=== PATIENT | female | born 1935 | race Caucasian/White ===

== ENCOUNTER 2018-10-17 08:12 | Inpatient (IN) ==
[2018-10-17 08:23] LABS: Basophils % 0.2 % (0.1-2.0); Eosinophils % 0.1 % (0.1-12.0); Hematocrit 31.9 % (37.0-47.0); Hemoglobin 10.9 g/dL (12.2-16.2); Lymphocytes # 0.7 K/mm3 (0.7-4.5); Lymphocytes % 7.6 % (10-50); Mean Corpuscular HGB Conc 34.2 g/dL (31.8-35.4); Mean Corpuscular Hemoglobin 31.2 pg (27.0-31.2); Mean Platelet Volume 6.7 fl (7.4-10.4); Monocytes # 0.4 K/mm3 (0.1-1.0); Monocytes % 4.7 % (1.7-9.3); Neutrophils # 8.2 K/mm3 (1.8-7.8); Neutrophils % 87.4 % (37.0-80.0); Platelet Count 201 K/mm3 (142-424); Red Blood Count 3.51 M/mm3 (4.20-5.40); Red Cell Distribution Width 13.8 % (11.5-17.5); White Blood Count 9.4 K/mm3 (4.8-10.8)
--- NOTE | 2018-10-17 08:23 | Emergency Department Note ---
ED Disposition Clinical Impression: Fall, Osteopenia, Nausea, Ribs, multiple fractures, Closed fracture of symphysis pubis, Frequent falls, Anticoagulated on Coumadin, Paroxysmal atrial fibrillation, Fracture of sacrum with delayed healing Disposition: Still a Patient Condition on Discharge: Fair Referrals: Cale Baez MD [Primary Care Provider] - - Critical Care Critical Care Time: No Attestation: On , the high probability of a clinically significant, sudden or life threatening deterioration of the following system(s) required my full and direct attention, intervention and personal management. The time I documented below is in addition to time spent performing reported procedures but includes the following listed in this critical care notation. Medical Decision Making - Ru Inquiry Pt receiving controlled substance: No Ru was queried for this patient: No Vital Signs: 10/17/18 07:58 10/17/18 08:19 10/17/18 08:30 Temperature 97.4 F L Temperature Source Temporal Artery Scan Pulse Rate [Right Brachial] 76 70 Respiratory Rate 17 Blood Pressure [Right Arm] 190/94 H 151/69 H Blood Pressure Mean [Right Arm] 126 96 Blood Pressure Source [Right Arm] Automatic Cuff Automatic Cuff Automatic Cuff Blood Pressure Position [Right Arm] Sitting Sitting Sitting 02 Sat by Pulse Oximetry 98 96 Oxygen Delivery Method Room Air 10/17/18 09:50 Temperature Temperature Source Pulse Rate [Right Brachial] 77 Respiratory Rate Blood Pressure [Right Arm] 176/85 H Blood Pressure Mean [Right Arm] 115 Blood Pressure Source [Right Arm] Automatic Cuff Blood Pressure Position [Right Arm] Supine 02 Sat by Pulse Oximetry 96 Oxygen Delivery Method - Lab Data Lab Results 10/17/18 08:00: WBC 9.4, RBC 3.51 L, Hgb 10.9 L, Hct 31.9 L, MCV 91.0, MCH 31.2, MCHC 34.2, RDW 13.8, Plt Count 201, MPV 6.7 L, Neut % (Auto) 87.4 H, Lymph % (Auto) 7.6 L, [place] % (Auto) 4.7, Eos % (Auto) 0.1, Baso % (Auto) 0.2, Neut # (Auto) 8.2 H, Lymph # (Auto) 0.7, [place] # (Auto) 0.4, Eos # (Auto) 0.0, Baso # (Auto) 0.0, Total Counted 100, Neutrophils % (Manual) 89 H, Lymphocytes % (M anual) 5 L, Monocytes % (Manual) 6, Platelet Estimate Normal, RBC Morphology Normal 10/17/18 08:00: PT 15.5 H, INR 1.52 H 10/17/18 08:00: Sodium 130 L, Potassium 2.9 L*, Chloride 92 L, Carbon Dioxide 30, Anion Gap 10.9, BUN 15, Creatinine 0.74, Estimated Creat Clear 40, Estimated GFR 75, Est GFR ( Amer) 90, Glucose 185 H, Calcium 8.6, Total Bilirubin 0.7, AST 16, ALT 17, Alkaline Phosphatase 139 H, Total Protein 6.8, Albumin 3.3 L, Globulin 3.5 H, Albumin/Globulin Ratio 0.9 L, Amylase 51, Lipase 146 10/17/18 08:00: PT 15.4 H, INR 1.51 H, APTT 27.5 10/17/18 08:00: Total Creatine Kinase 47, CK-MB (CK-2) 1.6, CK-MB (CK-2) Rel Index 3.4, Troponin I < 0.02 Result diagrams: 10/17/18 08:00 10/17/18 08:00 Orders (Tests/Meds): ED MEDICATIONS Generic Name Dose Route Start Last Admin Trade Name Suzette PRN Reason Stop Dose Admin Morphine Sulfate 1 mg 10/17/18 08:42 10/17/18 09:51 Morphine 2mg/Ml Syringe IV 11/16/18 08:41 1 mg [id number] PRN Administration Severe Pain Discontinued Medications Generic Name Dose Route Start Last Admin Trade Name Suzette PRN Reason Stop Dose Admin Famotidine 20 mg 10/17/18 08:42 10/17/18 09:51 Pepcid 20mg/2ml Vial IV 10/17/18 08:43 20 mg ONCE ONE Administration Iopamidol 100 ml 10/17/18 09:54 10/17/18 09:56 [id number]; 100ml Vial IV 10/17/18 09:55 100 ml ONCE ONE Administration Protocol Ondansetron HCl 4 mg 10/17/18 08:58 10/17/18 09:00 Zofran 4mg/2ml Vial IV 10/17/18 08:59 4 mg ONCE ONE Administration Potassium Chloride 40 meq 10/17/18 08:42 10/17/18 10:04 Klor-Con 20meq Tablet PO 10/17/18 08:43 20 meq ONCE ONE Administration Sodium Chloride 10 ml 10/17/18 09:54 10/17/18 09:56 Rad-Saline Flush 10ml Syringe IV 10/17/18 09:55 10 ml ONCE ONE Administration Sodium Chloride 50 ml 10/17/18 09:54 10/17/18 09:56 Rad-Sod Chloride 0.9% 250ml IV 10/17/18 09:55 50 ml ONCE ONE Administration ORDERS Category Date Time Status CT chest w con Stat Cat Scan 10/17/18 09:11 Taken XR hip LT 2-3V w/pelvis Stat Exams 10/17/18 08:17 Taken XR hip RT 2-3V w/pelvis Stat Exams 10/17/18 08:06 Taken Urinalysis and Microscopic Stat Lab 10/17/18 08:06 Ordered - Radiology Data #1 Image(s): Chest, Pelvis, Hip Image Reviewed: Yes I reviewed the patient's radiology image Preliminary Findings: Normal/NAD - CT Data CT Scan: Abdomen, Pelvis, Chest Time Received: 10:[address] Reviewed: Yes: I discussed the CT results w/the radiologist, I have viewed the radiologist's interpretation Preliminary Findings: Abnormal Findings Narrative: The patient has left C5-6 and 7 nondisplaced rib fractures with no pneumothorax or hydrothorax with left lower lobe atelectasis. He does have nondisplaced fracture of the superior and inferior pubic rami on the left. - ECG Data Tracing #1 Normal sinus rhythm 71/min baseline artifact no acute findings. ECG initial impression date: 10/17/18 ECG initial impression time: 08:35 Medical Decision Narrative: The patient has left C5-6 and 7 nondisplaced rib fractures with no pneumothorax or hydrothorax with left lower lobe atelectasis. He does have nondisplaced fracture of the superior and inferior pubic rami on the left. I informed the p atient of the above findings by Dr. Snowden. I advised her for admission for rehabilitation and she had questions and finally agreed as she has no help at home and she is recovering for a nondisplaced sacral fracture from June 2018. [address] Baez for admission. Dr. Baez agreed to admit the patient for hypokalemia, Coumadin therapy, pain control fall precautions and rehabilitation Fall HPI - General Chief Complaint: Fall Stated Complaint: fall with left hip pain Time Seen by Provider: 10/17/18 08:15 Mode of Arrival: EMS Limitations: No Limitations Description of Symptoms (Recalled from ER Triage Doc. by RN): pt states she fell while trying to get to her wheelchair around 1230 and managed to make it to the couch, however after being on the couch was unable to get up without severe naus ea. she hit a small table as she went down, and she said it hurt her left posterior ribs. a little while later she noticed left hip pain. history of having had both hips fractured this past year. currently takes coumadin and aspirin daily. states she did alot of physical activity yesterday and may have just gotten weak and stumbled while trying to use her cane - History of Present Illness HPI Narrative: 83 years old white female with history of osteopenia, nondisplaced sacral fracture, bilateral hip fracture in the past on Coumadin anticoagulation ther apy. Today at 12:30 AM while she was ambulating she fell hit her left lower ribs on the table with a result of left lower rib pain contusion and nausea. She ambulated back to the couch and when she tried to get up this morning she was hurting in her ribs and left hip with severe nausea that is when she contacted her niece who in turn called the ambulance and brought her to the ED for evaluation. The pain is sharp in character worse with deep breathing relieved by laying on the right side. She denies shortness of breath hemoptysis vomiting hematemesis coffee-ground emesis melanotic stool or bleeding per rectum. She denies head injury neck or spine pain. She denies loss of consciousness and provided the above history. complaint: fall Onset (ago): hour(s) (more than 7 hours ago.) Fall from: wheelchair Fall witnessed: no Place fall occurred: home Loss of consciousness: none Prolonged down time: no Symptoms prior to fall: none Location of injury: chest, pelvis Severity: moderate Quality: sharp Associated symptoms (after fall): other (nausea. ) - Related Data Home Medications Medication Instructions Recorded Confirmed amiloride 5 mg-hydrochlorothiazide 1 tab PO DAILY 07/26/18 50 mg tablet aspirin 81 mg chewable tablet 81 mg PO DAILY 07/26/18 metoprolol succinate ER 50 mg 50 mg PO DAILY 07/26/18 capsule sprinkle, ext. release 24 hr warfarin 2 mg tablet 2 mg PO QMWF 07/26/18 10/17/18 Allergies Allergy/AdvReac Type Severity Reaction Status Date / Time No Known Allergies Allergy Verified 07/26/18 14:03 [facility] History I have reviewed the patient's past medical history: Yes (I reviewed her records from Dr. Baez. ) Medical History: Reports:: Hypertension Denies:: Internal Pacemaker Other Medical History: Reports: Arthritis, Other Comment: Heart attack 2 years ago. Laterality Cases: Right: Other Other Surgeries: Yes: Cholecystectomy. No: Pacemaker - Social History Educational Level: Completed High School Smoking Status: Never smoker Alcohol Intake: never - Psychiatric History Expresses thoughts of harming self/others: None Suicide Plan Description: No Plan Family Hx:: Hypertension, Cancer ROS Obtained: Yes All systems reviewed & no additional complaints Physical Exam - General General appearance: alert, in no apparent distress - Head Head exam: atraumatic, normocephalic, normal inspection - Eye Eye exam: Present: normal appearance, PERRL, EOMI. Absent: scleral icterus, nystagmus - ENT ENT exam: Present: normal exam, normal oropharynx, mucous membranes moist, TM's normal bilaterally, normal external ear exam - Neck Neck exam: Present: normal inspection, full ROM, trachea midline. Absent: tenderness, meningismus, lymphadenopathy - Chest Chest inspection: Present: normal inspection, symmetric chest wall rise. Absent: tenderness - Respiratory Respiratory exam: Present: normal lung sounds bilaterally. Absent: respiratory distress, wheezes - Cardiovascular Cardiovascular exam: Present: regular rate, normal rhythm, normal heart sounds. Absent: JVD - Abdominal Exam Abdominal exam: Present: soft, normal bowel sounds. Absent: distention, tenderness, guarding, rebound, rigidity - External exam: Present: normal external exam - Extremities Exam Extremities exam: Present: normal inspection, full ROM, normal capillary refill. Absent: tenderness, calf tenderness - Back Exam Back exam: Present: normal inspection. Absent: tenderness, CVA tenderness (R), CVA tenderness (L), paraspinal tenderness, vertebral tenderness - Neurological Exam Neurological exam: Present: alert, oriented X3, CN II-XII intact, motor sensory deficit, reflexes normal - Psychiatric Psychiatric exam: Present: normal affect, normal mood - Skin Skin exam: Present: warm, dry, intact, normal color - Lymphatic Lymphatic Findings: no adenopathy
[2018-10-17 08:28] LABS: INR 1.52 (0.9-1.1); Prothrombin Time 15.5 seconds (9.4-11.8)
[2018-10-17 08:31] LABS: Albumin Level 3.3 gm/dL (3.4-5.0); Albumin/Globulin Ratio 0.9 (1.1-1.8); Anion Gap 10.9 mEq/L (5-15); Bilirubin,Total 0.7 mg/dL (0.2-1.0); Calcium 8.6 mg/dL (8.5-10.1); Globulin 3.5 gm/dl (1.3-3.2); Total Protein,Serum 6.8 gm/dL (6.4-8.2)
[2018-10-17 08:33] LABS: Potassium 2.9 mmoL/L (3.5-5.1)
[2018-10-17 08:40] LABS: Lymphocytes % 5 % (10-50); Monocytes % 6 % (2-9); Neutrophils % 89 % (42-76); Total Cells Counted 100
[2018-10-17 08:41] LABS: RBC Morphology Normal
[2018-10-17 08:56] LABS: Activated Partial Thrombo Time 27.5 seconds (23.6-34.0); INR 1.51 (0.9-1.1); Prothrombin Time 15.4 seconds (9.4-11.8)
[2018-10-17 09:06] LABS: Creatine Kinase 47 U/L (26-192)
--- NOTE | 2018-10-17 11:53 | Pharmacy Consult Notes ---
[facility] Pharmacy VTE Monitoring - Patient Demographics Admission date: 10/17/18 Report Date: 10/17/18 Time: 11:53 Allergies/Adverse Reactions: Patient Allergies No Known Allergies Allergy (Verified 07/26/18 14:03) Height: 1.63 m Weight: 62.851 kg Patient Problems: Current Active Problems Fall (Acute) Osteopenia (Acute) Nausea (Acute) Ribs, multiple fractures (Acute) Closed fracture of symphysis pubis (Acute) Frequent falls (Acute) Anticoagulated on Coumadin (Acute) Paroxysmal atrial fibrillation (Acute) Fracture of sacrum with delayed healing (Acute) - VTE Risk Labs: VTE Related Lab Results Hgb 10.9 g/dL (12.2-16.2) L 10/17/18 08:00 Hct 31.9 % (37.0-47.0) L 10/17/18 08:00 Plt Count 201 K/mm3 (142-424) 10/17/18 08:00 PT 15.4 seconds (9.4-11.8) H 10/17/18 08:00 INR 1.51 (0.9-1.1) H 10/17/18 08:00 APTT 27.5 seconds (23.6-34.0) 10/17/18 08:00 BUN 15 mg/dL (7-18) 10/17/18 08:00 Creatinine 0.74 mg/dL (0.55-1.02) 10/17/18 08:00 Estimated Creat Clear 40 mL/min (50-200) 10/17/18 08:00 VTE Risk Level: Moderate Risk - Prophylaxis VTE Prophylaxis Ordered?: Yes Types of VTE Prophylaxis: Pharmacological Pharmacologic Type: Warfarin - VTE Diagnosis Confirmed Treatment or plan recommended: Continue Current Treatment
[2018-10-17 18:17] LABS: Microscopic, Urine URINE MICROSCOPIC (MICROSCOPIC)
[2018-10-17 18:31] LABS: Appearance,Urine CLEAR (Clear); Bilirubin,Urine Negative (Negative); Blood, Urine Negative (Negative); Color,Urine YELLOW (Yellow); Glucose,Urine (UA) TRACE (Negative); Ketones,Urine Negative (Negative); Leukocyte Esterase,Urine Negative (Negative); Protein,Urine Negative (Negative); Urobilinogen,Urine 0.2 EU/dl (0.2)
[2018-10-17 18:39] LABS: Amorphous Sediment,Urine Trace /lpf; Squamous Epithelial Cell,Urine Occasional #/hpf (0-5)
[2018-10-17 18:40] LABS: WBC,Urine Occasional #/hpf (0-3)
[2018-10-18 06:05] LABS: Basophils % 0.1 % (0.1-2.0); Eosinophils # 0.1 K/mm3 (0.0-0.4); Eosinophils % 0.8 % (0.1-12.0); Hematocrit 27.2 % (37.0-47.0); Lymphocytes # 1.6 K/mm3 (0.7-4.5); Lymphocytes % 25.4 % (10-50); Mean Corpuscular HGB Conc 32.6 g/dL (31.8-35.4); Mean Corpuscular Hemoglobin 29.7 pg (27.0-31.2); Mean Corpuscular Volume 91.3 fl (81-99); Mean Platelet Volume 6.4 fl (7.4-10.4); Monocytes # 0.5 K/mm3 (0.1-1.0); Monocytes % 7.5 % (1.7-9.3); Neutrophils # 4.3 K/mm3 (1.8-7.8); Neutrophils % 66.2 % (37.0-80.0); Platelet Count 175 K/mm3 (142-424); Red Blood Count 2.98 M/mm3 (4.20-5.40); White Blood Count 6.4 K/mm3 (4.8-10.8)
[2018-10-18 06:16] LABS: INR 1.38 (0.9-1.1); Prothrombin Time 14.1 seconds (9.4-11.8)
[2018-10-18 06:18] LABS: Anion Gap 7.8 mEq/L (5-15); Calcium 8.4 mg/dL (8.5-10.1); Potassium 3.8 mmoL/L (3.5-5.1)
[2018-10-18 06:31] LABS: Hemoglobin 8.9 g/dL (12.2-16.2)
--- NOTE | 2018-10-18 07:25 | Progress Note ---
Internal Medicine - PN: Subj *Date: 10/18/18 *Time: 07:47 Interval history: 83 year old female admitted yesterday for pubic fracture, left rib fractures of 5th, 6th, 7th, and 8th, and hypokalemia. She rested comfortably throughout the night with minimal pain, does have complaint of hiccups but not to the point of wanting medicines. Exam Vital signs and Labs for Last 24 Hours: Temp Pulse Resp BP Pulse Ox 98.7 F 84 19 115/55 L 97 10/18/18 04:00 10/18/18 04:00 10/18/18 04:00 10/18/18 04:00 10/18/18 04:00 Laboratory Results - last 24 hr 10/17/18 08:00: WBC 9.4, RBC 3.51 L, Hgb 10.9 L, Hct 31.9 L, MCV 91.0, MCH 31.2, MCHC 34.2, RDW 13.8, Plt Count 201, MPV 6.7 L, Neut % (Auto) 87.4 H, Lymph % (Auto) 7.6 L, [place] % (Auto) 4.7, Eos % (Auto) 0.1, Baso % (Auto) 0.2, Neut # (Auto) 8.2 H, Lymph # (Auto) 0.7, [place] # (Auto) 0.4, Eos # (Auto) 0.0, Baso # (Auto) 0.0, Total Counted 100, Neutrophils % (Manual) 89 H, Lymphocytes % (Manual) 5 L, Monocytes % (Manual) 6, Platelet Estimate Normal, RBC Morphology Normal 10/17/18 08:00: PT 15.5 H, INR 1.52 H 10/17/18 08:00: Sodium 130 L, Potassium 2.9 L*, Chloride 92 L, Carbon Dioxide 30, Anion Gap 10.9, BUN 15, Creatinine 0.74, Estimated Creat Clear 40, Estimated GFR 75, Est GFR ( Amer) 90, Glucose 185 H, Calcium 8.6, Total Bilirubin 0.7, AST 16, ALT 17, Alkaline Phosphatase 139 H, Total Protein 6.8, Albumin 3.3 L, Globulin 3.5 H, Albumin/Globulin Ratio 0.9 L, Amylase 51, Lipase 146 10/17/18 08:00: PT 15.4 H, INR 1.51 H, APTT 27.5 10/17/18 08:00: Total Creatine Kinase 47, CK-MB (CK-2) 1.6, CK-MB (CK-2) Rel Index 3.4, Troponin I < 0.02 10/17/18 18:09: Urine Color Yellow, Urine Appearance Clear, Urine pH 7.0, Ur Specific [place] 1.010, Urine Protein Negative, Urine Glucose (UA) Trace, Urine Ketones Negative, Urine Blood Negative, Urine Nitrate Negative, Urine Bilirubin Negative, Urine Urobilinogen 0.2, Ur Leukocyte Esterase Negative, Urine WBC Occasional, Ur Squamous Epith Cells Occasional, Amorphous Sediment Trace 10/18/18 05:30: WBC 6.4 D, RBC 2.98 L, Hgb 8.9 L D, Hct 27.2 L, MCV 91.3, MCH 29.7, MCHC 32.6, RDW 14.0, Plt Count 175, MPV 6.4 L, Neut % (Auto) 66.2, Lymph % (Auto) 25.4, [place] % (Auto) 7.5, Eos % (Auto) 0.8, Baso % (Auto) 0.1, Neut # (Auto) 4.3, Lymph # (Auto) 1.6, [place] # (Auto) 0.5, Eos # (Auto) 0.1, Baso # (Auto) 0.0 10/18/18 05:30: PT 14.1 H, INR 1.38 H 10/18/18 05:30: Sodium 132 L, Potassium 3.8 D, Chloride 98, Carbon Dioxide 30, Anion Gap 7.8, BUN 9 D, Creatinine 0.66, Estimated Creat Clear 42, Estimated GFR 85, Est GFR ( Amer) 103, Glucose 101 D, Calcium 8.4 L I & O for Last 24 hours: Intake & Output 10/15/18 10/16/18 10/17/18 10/18/18 23:59 23:59 23:59 23:59 Intake Total 733 / 733 626 / 626 Output Total 700 / 700 650 / 650 Balance 33 / 33 -24 / -24 Weight 138 lb 9 oz - Constitutional no acute distress - *Routine HEENT Exam Head: Present: normocephalic Eye: Present: PERRL, normal accommodation ENT: Present: mucous membranes moist - Routine Chest/Breast/Axilla Exam Chest wall: Present: tenderness Comments: left chest tenderness - *Routine Respiratory Exam Present: decreased breath sounds, CTA bilaterally. Absent: accessory muscle use, respiratory distress Comments: decreased left lung base - *Routine Cardiovascular Exam Present: RRR Comments: no LE edema - *Routine Abdominal Exam Present: soft, normoactive bowel sounds. Absent: tenderness - *Routine Neurological Exam Present: alert, oriented X3 - Routine Psychiatric Exam Present: normal affect Assessment and Plan - Assessment and plan all Dx Assessment and Plan for all problems:: Will continue IVFs with potassium, repeat CBC, BMP, and PT/INR tomorrow morning. Physical therapy to eval/treat today. Case management advised of patient and potentially needing SNF. Encouraged patient to use IS, cough and deep breath for pneumonia prevention.
--- NOTE | 2018-10-18 07:29 | History & Physical Report ---
*Admission Date: 10/17/18 *History of present illness: 83 year old female admitted for fractures of the superior and inferior pubic rami left side involving the symphysis pubis, rib fractures of the left 5th, 6th, 7th, and 8th, and hypokalemia. She reports having her cane during this event but still became unsteady leaning to one side and subsequently going down on that (left) side hitting a table, no actual fall to the ground. She lives by herself in a home that now built 50 years ago, if able she'd like to return but understands and is willing to go to [place] [facility]. [facility] History Medical History: Reports:: Cancer (SKIN- NOSE), Hypertension, Myocardial Infarction Denies:: Diabetes Mellitus Type 1, Diabetes Mellitus Type 2, Internal Pacemaker Other Medical History: Reports: Arthritis, Cataracts, Other Laterality Cases: Right: Other Other Surgeries: Yes: Cholecystectomy. No: Pacemaker - *Social History Educational Level: Completed High School Smoking Status: Never smoker Alcohol Intake: never Occupational Status: retired - Psychiatric History Expresses thoughts of harming self/others: None Suicide Plan Description: No Plan *Family Hx:: Hypertension, Cancer Review of Systems - ENT Reports poor balance - *Cardiovascular Denies chest pain, Denies irregular heart rhythm, Denies leg swelling Comments: left rib pain - *Respiratory Reports pain on inspiration, Reports pain with cough, Denies cough, Denies shortness of breath - *Gastrointestinal Denies abdominal pain, Denies coffee ground vomit, Denies black, tarry stools Comments: hiccuping - *Musculoskeletal Reports abnormal walking, Denies numbness - Integumentary/Breasts Denies unusual bruising - *Neurologic Reports frequent falls, Reports lack of coordination Meds Home Medications Medication Instructions Recorded Confirmed Type amiloride 5 mg-hydrochlorothiazide 1 tab PO DAILY 07/26/18 10/17/18 History 50 mg tablet aspirin 81 mg chewable tablet 81 mg PO DAILY 07/26/18 10/17/18 History warfarin 2 mg tablet 2.5 mg PO DAILY 07/26/18 10/17/18 History Metoprolol Succinate [Toprol XL 50 mg PO DAILY 10/17/18 10/17/18 History 50mg Tablet] Allergies Allergy/AdvReac Type Severity Reaction Status Date / Time No Known Allergies Allergy Verified 10/17/18 11:54 Exam Vital signs and Labs for Last 24 Hours: Temp Pulse Resp BP Pulse Ox 98.7 F 84 19 115/55 L 97 10/18/18 04:00 10/18/18 04:00 10/18/18 04:00 10/18/18 04:00 10/18/18 04:00 Laboratory Results - last 24 hr 10/17/18 08:00: WBC 9.4, RBC 3.51 L, Hgb 10.9 L, Hct 31.9 L, MCV 91.0, MCH 31.2, MCHC 34.2, RDW 13.8, Plt Count 201, MPV 6.7 L, Neut % (Auto) 87.4 H, Lymph % (Auto) 7.6 L, [place] % (Auto) 4.7, Eos % (Auto) 0.1, Baso % (Auto) 0.2, Neut # (Auto) 8.2 H, Lymph # (Auto) 0.7, [place] # (Auto) 0.4, Eos # (Auto) 0.0, Baso # (Auto) 0.0, Total Counted 100, Neutrophils % (Manual) 89 H, Lymphocytes % (Manual) 5 L, Monocytes % (Manual) 6, Platelet Estimate Normal, RBC Morphology Normal 10/17/18 08:00: PT 15.5 H, INR 1.52 H 10/17/18 08:00: Sodium 130 L, Potassium 2.9 L*, Chloride 92 L, Carbon Dioxide 30, Anion Gap 10.9, BUN 15, Creatinine 0.74, Estimated Creat Clear 40, Estimated GFR 75, Est GFR ( Amer) 90, Glucose 185 H, Calcium 8.6, Total Bilirubin 0.7, AST 16, ALT 17, Alkaline Phosphatase 139 H, Total Protein 6.8, Albumin 3.3 L, Globulin 3.5 H, Albumin/Globulin Ratio 0.9 L, Amylase 51, Lipase 146 10/17/18 08:00: PT 15.4 H, INR 1.51 H, APTT 27.5 10/17/18 08:00: Total Creatine Kinase 47, CK-MB (CK-2) 1.6, CK-MB (CK-2) Rel Index 3.4, Troponin I < 0.02 10/17/18 18:09: Urine Color Yellow, Urine Appearance Clear, Urine pH 7.0, Ur Specific [place] 1.010, Urine Protein Negative, Urine Glucose (UA) Trace, Urine Ketones Negative, Urine Blood Negative, Urine Nitrate Negative, Urine Bilirubin Negative, Urine Urobilinogen 0.2, Ur Leukocyte Esterase Negative, Urine WBC Occasional, Ur Squamous Epith Cells Occasional, Amorphous Sediment Trace 10/18/18 05:30: WBC 6.4 D, RBC 2.98 L, Hgb 8.9 L D, Hct 27.2 L, MCV 91.3, MCH 29.7, MCHC 32.6, RDW 14.0, Plt Count 175, MPV 6.4 L, Neut % (Auto) 66.2, Lymph % (Auto) 25.4, [place] % (Auto) 7.5, Eos % (Auto) 0.8, Baso % (Auto) 0.1, Neut # (Auto) 4.3, Lymph # (Auto) 1.6, [place] # (Auto) 0.5, Eos # (Auto) 0.1, Baso # (Auto) 0.0 10/18/18 05:30: PT 14.1 H, INR 1.38 H 10/18/18 05:30: Sodium 132 L, Potassium 3.8 D, Chloride 98, Carbon Dioxide 30, Anion Gap 7.8, BUN 9 D, Creatinine 0.66, Estimated Creat Clear 42, Estimated GFR 85, Est GFR ( Amer) 103, Glucose 101 D, Calcium 8.4 L I & O for Last 24 hours: Intake & Output 10/15/18 10/16/18 10/17/18 10/18/18 23:59 23:59 23:59 23:59 Intake Total 733 / 733 626 / 626 Output Total 700 / 700 650 / 650 Balance -24 / -24 Weight 138 lb 9 oz - *Routine HEENT Exam Head: Present: normocephalic, atraumatic Eye: Present: PERRL, normal accommodation ENT: Present: mucous membranes moist - Routine Chest/Breast/Axilla Exam Chest wall: Present: tenderness Comments: left low rib tenderness - *Routine Respiratory Exam Present: CTA bilaterally. Absent: accessory muscle use, respiratory distress Comments: diminished left lower lobes - *Routine Cardiovascular Exam Present: RRR - *Routine Abdominal Exam Present: soft, normoactive bowel sounds. Absent: tenderness - *Routine Exam Comments: external catheter in place to wall suction - *Routine Extremities Exam Present: normal capillary refill. Absent: edema, joint swelling - *Routine Neurological Exam Present: alert, oriented X3, moving all extremities. Absent: altered mental status, facial asymmetry - Routine Psychiatric Exam Present: normal affect, normal thought process Assessment and Plan - Assessment and plan all Dx Assessment and Plan for all problems:: Physical therapy to evaluate and assess mobility today, continue IVF with potassium, will recheck labs tomorrow morning. IS, cough, and deep breathing encouraged each hour throughout the day while awake.
--- NOTE | 2018-10-18 11:16 | Pharmacy Consult Notes ---
[facility] Pharmacy VTE Monitoring - Patient Demographics Admission date: 10/17/18 Report Date: 10/18/18 Time: 11:15 Allergies/Adverse Reactions: Patient Allergies No Known Allergies Allergy (Verified 10/17/18 11:54) Height: 1.63 m Weight: 62.851 kg Patient Problems: Current Active Problems Fall (Acute) Osteopenia (Acute) Nausea (Acute) Ribs, multiple fractures (Acute) Closed fracture of symphysis pubis (Acute) Frequent falls (Acute) Anticoagulated on Coumadin (Acute) Paroxysmal atrial fibrillation (Acute) Fracture of sacrum with delayed healing (Acute) - VTE Risk Labs: VTE Related Lab Results Hgb 8.9 g/dL (12.2-16.2) L D 10/18/18 05:30 Hct 27.2 % (37.0-47.0) L 10/18/18 05:30 Plt Count 175 K/mm3 (142-424) 10/18/18 05:30 PT 14.1 seconds (9.4-11.8) H 10/18/18 05:30 INR 1.38 (0.9-1.1) H 10/18/18 05:30 APTT 27.5 seconds (23.6-34.0) 10/17/18 08:00 BUN 9 mg/dL (7-18) D 10/18/18 05:30 Creatinine 0.66 mg/dL (0.55-1.02) 10/18/18 05:30 Estimated Creat Clear 42 mL/min (50-200) 10/18/18 05:30 VTE Risk Level: Moderate Risk - Prophylaxis VTE Prophylaxis Ordered?: Yes Types of VTE Prophylaxis: TEDS Knee High Location of Applied Device: Bilateral Lower Extremeties
[2018-10-19 06:04] LABS: Basophils % 0.3 % (0.1-2.0); Eosinophils # 0.2 K/mm3 (0.0-0.4); Eosinophils % 2.4 % (0.1-12.0); Hematocrit 28.5 % (37.0-47.0); Lymphocytes # 1.6 K/mm3 (0.7-4.5); Lymphocytes % 24.8 % (10-50); Mean Corpuscular HGB Conc 31.5 g/dL (31.8-35.4); Mean Corpuscular Hemoglobin 29.1 pg (27.0-31.2); Mean Corpuscular Volume 92.2 fl (81-99); Mean Platelet Volume 6.6 fl (7.4-10.4); Monocytes # 0.5 K/mm3 (0.1-1.0); Monocytes % 7.5 % (1.7-9.3); Neutrophils # 4.2 K/mm3 (1.8-7.8); Neutrophils % 65.1 % (37.0-80.0); Platelet Count 179 K/mm3 (142-424); Red Blood Count 3.09 M/mm3 (4.20-5.40); Red Cell Distribution Width 14.1 % (11.5-17.5); White Blood Count 6.5 K/mm3 (4.8-10.8)
[2018-10-19 06:11] LABS: Anion Gap 9.8 mEq/L (5-15); Calcium 8.3 mg/dL (8.5-10.1); INR 1.21 (0.9-1.1); Potassium 3.8 mmoL/L (3.5-5.1); Prothrombin Time 12.4 seconds (9.4-11.8)
--- NOTE | 2018-10-19 07:19 | Discharge Summary ---
General - General Admission date:: 10/17/18 Discharge date: 10/19/18 HPI HPI: 83 year old female admitted for fractures of the superior and inferior pubic rami left side involving the symphysis pubis, rib fractures of the left 5th, 6th, 7th, and 8th, and hypokalemia. She reports having her cane during this event but still became unsteady leaning to one side and subsequently going down on that (left) side hitting a table, no actual fall to the ground. She lives by herself in a home that now built 50 years ago, if able she'd like to return but understands and is willing to go to [facility] facility. Hospital Course Hospital Course: Patient was admitted for pain control and PT evaluation of her acute pelvic fractures. The morning admission her hemoglobin dropped 2 g. Coumadin was held. On the afternoon of the patient was evaluated by physical therapy. She did well ambulating with minimal pain. Patient continued to have pain in the ribs that was exacerbated by movement, deep breathing, sneezing, coughing. Discussion was had with the patient in regards to return to [facility] versus [facility] rehab. The patient preferred to return to home. She was watched for another 24 hours to ensure there was no further drop in hemoglobin. H&H stabilized. On the morning of October 19 she was discharged home. She will follow-up in the office next Thursday Objective Vital signs: Temp Pulse Resp BP Pulse Ox 98.1 F 70 18 124/60 96 10/19/18 04:00 10/19/18 04:00 10/19/18 04:00 10/19/18 04:00 10/19/18 04:00 Results Labs on day of discharge: Labs from last 24 hours 10/19/18 10/19/18 10/19/18 05:28 05:28 05:28 WBC 6.5 RBC 3.09 L Hgb 9.0 L Hct 28.5 L MCV 92.2 MCH 29.1 MCHC 31.5 L RDW 14.1 Plt Count 179 MPV 6.6 L Neut % (Auto) 65.1 Lymph % (Auto) 24.8 [place] % (Auto) 7.5 Eos % (Auto) 2.4 Baso % (Auto) 0.3 Neut # (Auto) 4.2 Lymph # (Auto) 1.6 [place] # (Auto) 0.5 Eos # (Auto) 0.2 Baso # (Auto) 0.0 PT 12.4 H INR 1.21 H Sodium 133 L Potassium 3.8 Chloride 98 Carbon Dioxide 29 Anion Gap 9.8 BUN 10 Creatinine 0.60 Estimated Creat Clear 42 Estimated GFR 95 Est GFR ( Amer) 115 Glucose 96 Calcium 8.3 L DS: Diagnosis - Discharge Diagnosis (1) Pelvic fracture Status: Acute (2) Closed fracture of symphysis pubis Status: Acute (3) Anemia due to blood loss, acute Status: Acute (4) Frequent falls Status: Acute (5) Paroxysmal atrial fibrillation Status: Acute (6) Ribs, multiple fractures Status: Acute Discharge Plan - Patient Discharge Instructions ACTIVITY: Continue current activity DIET: continue same diet - Follow up Plan Follow up with: Mae Bryan APRN [Nurse Practitioner] - 10/25/18 Disposition: Home, Self-Fdc Medications: Home Medications Medication Instructions Recorded Confirmed Type amiloride 5 mg-hydrochlorothiazide 1 tab PO DAILY 07/26/18 10/17/18 History 50 mg tablet aspirin 81 mg chewable tablet 81 mg PO DAILY 07/26/18 10/17/18 History Metoprolol Succinate [Toprol XL 50 mg PO DAILY 10/17/18 10/17/18 History 50mg Tablet] Furosemide [Furosemide 20mg Tab] 20 mg PO DAILY 10/18/18 10/18/18 History Ibandronate Sodium [Boniva] 150 mg PO MONTHLY 10/18/18 10/18/18 History Potassium Chloride [Micro-K 10mEq 10 meq PO DAILY 10/18/18 10/18/18 History cap] Warfarin Sodium 2.5 mg PO DAILY 10/18/18 10/18/18 History Prescriptions/Medication Reconciliation: Continue aspirin 81 mg chewable tablet 81 mg PO DAILY amiloride 5 mg-hydrochlorothiazide 50 mg tablet 1 tab PO DAILY Metoprolol Succinate [Toprol XL 50mg Tablet] 50 mg PO DAILY Potassium Chloride [Micro-K 10mEq cap] 10 meq PO DAILY Ibandronate Sodium [Boniva] 150 mg PO MONTHLY Furosemide [Furosemide 20mg Tab] 20 mg PO DAILY Discontinued Warfarin Sodium 2.5 mg PO DAILY
== END 2018-10-19 10:41 | disposition home or self-care (01) ==
LOC: 2ND 08:12 → ER 08:12 → OBSVTOIN 11:01 → 2ND 11:02
PROVIDERS: ADMIT Family Medicine; ATTEND Family Medicine
CPT/HCPCS: 36415; 71020; 71046; 71101; 71260; 73502; 74177; 80048; 80053; 81001; 82150; 82550; 82553; 83690; 84484; 85007; 85025; 85610; 85730; 90686; 90732; 93005; 96374; 97161; 99283; J2405; Q9967

== ENCOUNTER 2019-03-28 18:04 | Inpatient (IN) ==
--- NOTE | 2019-03-28 18:43 | Emergency Department Note ---
ED Disposition Clinical Impression: Hip fracture, Humeral surgical neck fracture, Anticoagulated on Coumadin Disposition: Admitted As Inpatient Condition on Discharge: Fair Referrals: Cale Baez MD [Primary Care Provider] - Time of Disposition: 20:04 - Critical Care Critical Care Time: No Attestation: On 03/28/19, the high probability of a clinically significant, sudden or life threatening deterioration of the following system(s) required my full and direct attention, intervention and personal management. The time I documented below is in addition to time spent performing reported procedures but includes the following listed in this critical care notation. Medical Decision Making - Medical Records Medical records reviewed: Yes: I reviewed the patient's medical records. - Ru Inquiry Pt receiving controlled substance: No Ru was queried for this patient: No Vital Signs: 03/28/19 18:12 Temperature 97.9 F Temperature Source Oral Pulse Rate [Left Radial] 73 Respiratory Rate 18 Blood Pressure [Right Arm] 145/65 H Blood Pressure Mean [Right Arm] 91 Blood Pressure Source [Right Arm] Automatic Cuff Blood Pressure Position [Right Arm] Sitting 02 Sat by Pulse Oximetry 93 L Oxygen Delivery Method Room Air - Lab Data Lab results reviewed: Yes: I reviewed the patient's lab results. Lab Results 03/28/19 18:40: WBC 15.8 H, RBC 4.08 L, Hgb 12.1 L, Hct 37.0, MCV 90.7, MCH 29.8, MCHC 32.8, RDW 13.3, Plt Count 206, MPV 6.5 L, Neut % (Auto) 92.5 H, Lymph % (Auto) 3.2 L, [place] % (Auto) 3.8, Eos % (Auto) 0.3, Baso % (Auto) 0.1, Neut # (Auto) 14.6 H, Lymph # (Auto) 0.5 L, [place] # (Auto) 0.6, Eos # (Auto) 0.1, Baso # (Auto) 0.0, Total Counted 100, Neutrophils % (Manual) 93 H, Lymphocytes % (Manual) 3 L, Monocytes % (Manual) 4, Platelet Estimate Normal, RBC Morphology Normal 03/28/19 18:40: PT 24.7 H, INR 2.46 H 03/28/19 18:40: Sodium 128 L, Potassium 4.1, Chloride 93 L, Carbon Dioxide 28, Anion Gap 11.1, BUN 16, Creatinine 0.86, Estimated Creat Clear 39, Estimated GFR 63, Est GFR ( Amer) 76, Glucose 164 H, Calcium 9.1, Total Bilirubin 0.7, AST 23, ALT 26, Alkaline Phosphatase 98, Total Protein 7.7, Albumin 3.7, Globulin 4.0 H, Albumin/Globulin Ratio 0.9 L 03/28/19 18:40: CK-MB (CK-2) 0.6 D Result diagrams: 03/28/19 18:40 03/28/19 18:40 Orders (Tests/Meds): ED MEDICATIONS Generic Name Dose Route Start Last Admin Trade Name Freq PRN Reason Stop Dose Admin Sodium Chloride 1,000 mls @ 999 mls/hr 03/28/19 19:45 03/28/19 19:51 Sod Chlor 0.9% 1000ml Bag IV 03/28/19 20:45 999 mls/hr .Q1H1M PEARL Administration Sodium Chloride 500 mls @ 999 mls/hr 03/28/19 19:45 Sod Chlor 0.9% 500ml Bag IV 04/27/19 19:44 .Q31M PEARL Discontinued Medications Generic Name Dose Route Start Last Admin Trade Name Freq PRN Reason Stop Dose Admin Morphine Sulfate 2 mg 03/28/19 19:45 03/28/19 19:51 Morphine 2mg/Ml Syringe IV 03/28/19 19:46 2 mg ONCE ONE Administration Ondansetron HCl 4 mg 03/28/19 19:45 03/28/19 19:51 Zofran 4mg/2ml Vial IV 03/28/19 19:46 4 mg ONCE ONE Administration Phytonadione 5 mg 03/28/19 19:51 Aqua Mephyton 10mg/Ml 1ml Ampule SQ 03/28/19 19:52 ONCE ONE ORDERS Category Date Time Status CT cervical spine wo con Stat Cat Scan 03/28/19 18:[address] head/brain wo con Stat Cat Scan 03/28/19 18:23 Taken Chest XR 2 view (NOT portable) [XR chest 2V] Stat Exams 03/28/19 18:21 Taken Tibia/fibula XR left 2 views [XR tibia fibula LT 2V] Exams 03/28/19 18:39 Taken Stat XR hip LT 2-3V w/pelvis Stat Exams 03/28/19 18:21 Taken XR humerus LT Stat Exams 03/28/19 18:21 Taken XR shoulder LT min 2V Stat Exams 03/28/19 18:21 Taken EKG Request [ECG Request by /Nse] Stat Y 03/28/19 19:44 Ordered - Physician Consults Physician Consulted: Patricio Time: 19:58 Reason -: Admission, Orthopedic Eval/Care Comment/Response: plans surgery for Thursday Additional Consult: Nestor Time: 19:59 Reason -: Admission Comment/Response: medical management. Vitamin K, stop coumadin Fall HPI - General Chief Complaint: Fall Stated Complaint: AO 03/28/19 @ 1230 injury to left side Time Seen by Provider: 03/28/19 18:40 Mode of Arrival: Wheelchair Source of Information: Patient Limitations: No Limitations Description of Symptoms (Recalled from ER Triage Doc. by RN): States today polly und 12:30 she was cleaning the drains outside when she tripped over a stump and stumbled falling on the ground, denies knowing she hit her head but a small raised blue area is noted on right forehead. c/o left shoulder, hip and leg pain. Family states when they picked her up she almost passed out from the pain. - History of Present Illness HPI Narrative: c/o severe left shoulder pain. Fell today, "spent five hours on the ground". I couldn't craw because my shoulder was killing me. - Related Data Home Medications Medication Instructions Recorded Confirmed amiloride 5 mg-hydrochlorothiazide 1 tab PO DAILY 07/26/18 03/28/19 50 mg tablet aspirin 81 mg chewable tablet 81 mg PO DAILY 07/26/18 03/28/19 Metoprolol Succinate [Toprol XL 50 mg PO DAILY 10/17/18 03/28/19 50mg Tablet] Ibandronate Sodium [Boniva] 150 mg PO WEEKLY 10/18/18 03/28/19 Warfarin Sodium [Coumadin 3mg 3.5 mg PO DAILY 03/28/19 03/28/19 tablet] Allergies Allergy/AdvReac Type Severity Reaction Status Date / Time No Known Allergies Allergy Verified 10/17/18 11:54 [facility] History - Hepatitis A Screen Drug use history?: No High risk sexual behaviors?: No History of sexually transmitted infection?: No Currently employed?: No Childcare worker?: No Do you have indoor plumbing?: Yes Do you have electricity?: Yes Attestation statement:: This patient has been screened for Hepatitis A risk factors. I have reviewed the patient's past medical history: Yes Medical History: Reports:: Cancer (SKIN- NOSE), Hypertension, Myocardial Infarction Denies:: Diabetes Mellitus Type 1, Diabetes Mellitus Type 2, Internal Pacemaker Other Medical History: Reports: Arthritis, Cataracts, Other Comment: Heart attack 2 years ago. Laterality Cases: Right: Other Other Surgeries: Yes: Cholecystectomy. No: Pacemaker - Social History Smoking Status: Never smoker Alcohol Intake: never Occupational Status: retired - Psychiatric History Expresses thoughts of harming self/others: None Suicide Plan Description: No Plan Family Hx:: Hypertension, Cancer ROS Obtained: Yes All systems reviewed & no additional complaints - Constitutional Constitutional: Denies chills, Denies fever(s) - ENT Ears, Nose, Mouth, and Throat: Reports system reviewed and no additional complaints, except as docu, Denies difficulty swallowing, Denies ringing in the ears - Cardiovascular Cardiovascular: Denies chest pain, Denies chest pain at rest, Denies diaphoresis, Denies dyspnea - Respiratory Respiratory: Yes system reviewed and no additional complaints, except as docu, No chest congestion, No cough, No dyspnea, No pain on inspiration - Gastrointestinal Gastrointestingal: Denies: abdominal pain - Musculoskeletal Musculoskeletal: Denies joint stiffness, Denies joint swelling, Denies limited range of motion, Reports other (left shoulder predominantly) - Integumentary/Breasts Skin/Breast: Denies rash - Neurologic Neurologic: Denies abnormal speech, Denies behavioral changes, Denies confusion, Denies frequent falls, Denies headache(s), Denies numbness - Hematologic/Lymphatic Henatologic/Lymphatic: Denies easy bleeding, Denies easy bruising Physical Exam - General General appearance: alert, in no apparent distress - Head Head exam: atraumatic, normocephalic, normal inspection, other (other than faint blue bruise on forehead) - Eye Eye exam: Present: normal appearance, PERRL, EOMI - ENT ENT exam: Present: normal exam, normal oropharynx, mucous membranes moist, TM's normal bilaterally, normal external ear exam - Neck Neck exam: Present: normal inspection, full ROM, trachea midline. Absent: meningismus, lymphadenopathy - Chest Chest inspection: Present: normal inspection, symmetric chest wall rise. Absent: tenderness - Respiratory Respiratory exam: Present: normal lung sounds bilaterally. Absent: respiratory distress - Cardiovascular Cardiovascular exam: Present: regular rate, normal rhythm. Absent: JVD - Abdominal Exam Abdominal exam: Present: soft. Absent: distention, tenderness, guarding - Extremities Exam Extremities exam: Present: tenderness, normal capillary refill, joint swelling, other (left shoulder. distal pulses intact.). Absent: full ROM - Expanded Lower Extremity Exam Left Hip/Pelvis exam: Present: full ROM, pelvis stable, other (some pain with e levation and rotation of left hip). Absent: tenderness, deformity, dislocation Lower leg exam: Present: tenderness. Absent: swelling, ecchymosis, deformity - Back Exam Back exam: Present: normal inspection. Absent: tenderness - Neurological Exam Neurological exam: Present: alert, oriented X3 - Psychiatric Psychiatric exam: Present: normal affect, normal mood - Skin Skin exam: Present: warm, dry. Absent: intact
[2019-03-28 18:52] LABS: Basophils % 0.1 % (0.1-2.0); Eosinophils # 0.1 K/mm3 (0.0-0.4); Eosinophils % 0.3 % (0.1-12.0); Hemoglobin 12.1 g/dL (12.2-16.2); Lymphocytes # 0.5 K/mm3 (0.7-4.5); Lymphocytes % 3.2 % (10-50); Mean Corpuscular HGB Conc 32.8 g/dL (31.8-35.4); Mean Corpuscular Hemoglobin 29.8 pg (27.0-31.2); Mean Corpuscular Volume 90.7 fl (81-99); Mean Platelet Volume 6.5 fl (7.4-10.4); Monocytes # 0.6 K/mm3 (0.1-1.0); Monocytes % 3.8 % (1.7-9.3); Neutrophils # 14.6 K/mm3 (1.8-7.8); Neutrophils % 92.5 % (37.0-80.0); Platelet Count 206 K/mm3 (142-424); Red Blood Count 4.08 M/mm3 (4.20-5.40); Red Cell Distribution Width 13.3 % (11.5-17.5); White Blood Count 15.8 K/mm3 (4.8-10.8)
[2019-03-28 18:59] LABS: INR 2.46 (0.9-1.1); Prothrombin Time 24.7 seconds (9.4-11.8)
[2019-03-28 19:04] LABS: Albumin Level 3.7 gm/dL (3.4-5.0); Albumin/Globulin Ratio 0.9 (1.1-1.8); Anion Gap 11.1 mEq/L (5-15); Bilirubin,Total 0.7 mg/dL (0.2-1.0); Calcium 9.1 mg/dL (8.5-10.1); Potassium 4.1 mmoL/L (3.5-5.1); Total Protein,Serum 7.7 gm/dL (6.4-8.2)
[2019-03-28 19:53] LABS: Lymphocytes % 3 % (10-50); Monocytes % 4 % (2-9); Neutrophils % 93 % (42-76); RBC Morphology Normal; Total Cells Counted 100
--- NOTE | 2019-03-29 07:25 | History & Physical Report ---
*Admission Date: 03/28/19 *Chief complaint: Fall *History of present illness: 83-year-old female presented to the emergency department after a fall. Patient was unable to get back up on her own and was ultimately found and brought to the emergency department. In the emergency department she was found to have a left humeral fracture and a left subcapital hip fracture. Patient is been admitted for orthopedic consultation. Patient tells me this morning that she fell by tripping over a powell. She denies loss of consciousness, chest pain, shortness of breath. Patient had prior pelvic fracture approximately 1 year ago. Patient takes warfarin for atrial fibrillation. Her INR was in a therapeutic range yesterday evening in the emergency department and she was given oral vitamin K to reverse this. [facility] History I have reviewed the patient's past medical history: Yes Medical History: Reports:: Atrial Fibrillation, Cancer (SKIN- NOSE), Hypertension, Myocardial Infarction Denies:: Diabetes Mellitus Type 1, Diabetes Mellitus Type 2, Internal Pacemaker *Have you ever received a pneumonia vaccine?: Yes *Have you received a flu vaccine this season?: Yes Other Medical History: Reports: Arthritis, Cataracts, Other Laterality Cases: Right: Other Other Surgeries: Yes: Cholecystectomy. No: Pacemaker - *Social History Educational Level: Completed High School Smoking Status: Never smoker Alcohol Intake: never *Occupational Status:: retired Housing: house Household Members: none *Travel in the last 8 weeks: None - Psychiatric History Expresses thoughts of harming self/others: None Suicide Plan Description: No Plan Family Hx:: Hypertension, Cancer Review of Systems - Review of Systems Review of systems:: pertinent systems reviewed and negative unless documented be low - Constitutional Denies body ache(s), Denies chills - *Cardiovascular Denies chest pain, Denies chest pain at rest - *Respiratory Denies change in phlegm color, Denies chest congestion - *Gastrointestinal Denies change in bowel habits, Denies coffee ground vomit, Denies constipation - *Neurologic Denies abnormal speech, Denies behavioral changes, Denies confusion, Denies frequent falls, Denies headache(s), Denies numbness Meds Home Medications Medication Instructions Recorded Confirmed Type amiloride 5 mg-hydrochlorothiazide 1 tab PO DAILY 07/26/18 03/28/19 History 50 mg tablet aspirin 81 mg chewable tablet 81 mg PO DAILY 07/26/18 03/28/19 History Metoprolol Succinate [Toprol XL 50 mg PO DAILY 10/17/18 03/28/19 History 50mg Tablet] Ibandronate Sodium [Boniva] 150 mg PO WEEKLY 10/18/18 03/28/19 History Warfarin Sodium [Coumadin 3mg 3.5 mg PO DAILY 03/28/19 03/28/19 History tablet] Allergies Allergy/AdvReac Type Severity Reaction Status Date / Time No Known Allergies Allergy Verified 10/17/18 11:54 Exam Vital signs and Labs for Last 24 Hours: Temp Pulse Resp BP Pulse Ox 99.8 F H 85 18 118/58 L 96 03/29/19 04:00 03/29/19 04:00 03/29/19 04:00 03/29/19 04:00 03/29/19 04:00 Laboratory Results - last 24 hr 03/28/19 18:40: WBC 15.8 H, RBC 4.08 L, Hgb 12.1 L, Hct 37.0, MCV 90.7, MCH 29.8, MCHC 32.8, RDW 13.3, Plt Count 206, MPV 6.5 L, Neut % (Auto) 92.5 H, Lymph % (Auto) 3.2 L, [place] % (Auto) 3.8, Eos % (Auto) 0.3, Baso % (Auto) 0.1, Neut # (Auto) 14.6 H, Lymph # (Auto) 0.5 L, [place] # (Auto) 0.6, Eos # (Auto) 0.1, Baso # (Auto) 0.0, Total Counted 100, Neutrophils % (Manual) 93 H, Lymphocytes % (Manual) 3 L, Monocytes % (Manual) 4, Platelet Estimate Normal, RBC Morphology Normal 03/28/19 18:40: PT 24.7 H, INR 2.46 H 03/28/19 18:40: Sodium 128 L, Potassium 4.1, Chloride 93 L, Carbon Dioxide 28, Anion Gap 11.1, BUN 16, Creatinine 0.86, Estimated Creat Clear 39, Estimated GFR 63, Est GFR ( Amer) 76, Glucose 164 H, Calcium 9.1, Total Bilirubin 0.7, AST 23, ALT 26, Alkaline Phosphatase 98, Total Protein 7.7, Albumin 3.7, Globulin 4.0 H, Albumin/Globulin Ratio 0.9 L 03/28/19 18:40: CK-MB (CK-2) 0.6 D 03/28/19 22:20: Urine Color Yellow, Urine Appearance Clear, Urine pH 6.5, Ur Specific [place] 1.015, Urine Protein Negative, Urine Glucose (UA) Negative, Urine Ketones Trace, Urine Blood Trace-l, Urine Nitrate Negative, Urine Bilirubin Negative, Urine Urobilinogen 0.2, Ur Leukocyte Esterase Negative, Urine RBC 5-10, Urine WBC 5-10, Urine Bacteria 1+ I & O for Last 24 hours: Intake & Output 03/26/19 03/27/19 03/28/19 03/29/19 11:59 11:59 11:59 11:59 Intake Total 2042 / 2042 Output Total 725 / 725 Balance 1318 / 1318 Weight 137 lb 6 oz Narrative: Patient is awake and alert this morning. She is in no distress. She is oriented to person, place, time. Oropharynx is moist and clear. Neck is without lymphadenopathy. Heart has a regular rate and rhythm. Lungs are clear to auscultation. Musculoskeletal exam reveals a left arm that is in a sling. She is neurovascularly intact in the left hand and forearm. The left leg is in traction. She is neurovascularly intact in the foot. Assessment and Plan (1) Hip fracture Current visit: Yes Status: Acute Category: Medical Code(s): S72.009A - Fracture of unspecified part of neck of unspecified femur, initial encounter for closed fracture (2) Anticoagulated on Coumadin Current visit: Yes Status: Acute Category: Medical Code(s): Z51.81 - Encounter for therapeutic drug level monitoring; Z79.01 - [facility] (current) use of anticoagulants (3) Humeral surgical neck fracture Current visit: Yes Status: Acute Category: Medical Code(s): S42.213A - Unspecified displaced fracture of surgical neck of unspecified humerus, initial encounter for closed fracture (4) Fall Current visit: No Status: Acute Category: Medical Code(s): W19.XXXA - Unspecified fall, initial encounter (5) Atrial fibrillation with controlled ventricular rate Current visit: Yes Status: Acute Category: Medical Code(s): I48.91 - Unspecified atrial fibrillation - Assessment and plan all Dx Assessment and Plan for all problems:: 1. Orthopedic consultation 2. Home medications but hold warfarin. Monitor INR. Vitamin K as needed to reverse anticoagulation. Surgery may proceed once patient's anticoagulation has been reversed
[2019-03-29 07:36] LABS: Basophils % 0.2 % (0.1-2.0); Eosinophils % 0.2 % (0.1-12.0); Hematocrit 27.9 % (37.0-47.0); Lymphocytes # 1.2 K/mm3 (0.7-4.5); Mean Corpuscular HGB Conc 34.3 g/dL (31.8-35.4); Mean Corpuscular Hemoglobin 30.7 pg (27.0-31.2); Mean Corpuscular Volume 89.6 fl (81-99); Monocytes # 0.5 K/mm3 (0.1-1.0); Monocytes % 5.5 % (1.7-9.3); Neutrophils # 6.9 K/mm3 (1.8-7.8); Neutrophils % 80.2 % (37.0-80.0); Platelet Count 134 K/mm3 (142-424); Red Blood Count 3.11 M/mm3 (4.20-5.40); Red Cell Distribution Width 13.7 % (11.5-17.5); White Blood Count 8.6 K/mm3 (4.8-10.8)
[2019-03-29 07:45] LABS: Anion Gap 10.4 mEq/L (5-15); Potassium 3.4 mmoL/L (3.5-5.1)
[2019-03-29 08:03] LABS: Hemoglobin 9.5 g/dL (12.2-16.2)
[2019-03-29 08:04] LABS: Calcium 7.9 mg/dL (8.5-10.1)
[2019-03-29 08:51] LABS: INR 2.47 (0.9-1.1); Prothrombin Time 24.8 seconds (9.4-11.8)
--- NOTE | 2019-03-29 09:22 | Pharmacy Consult Notes ---
[facility] Pharmacy VTE Monitoring - Patient Demographics Admission date: 03/28/19 Report Date: 03/29/19 Time: 09:22 Allergies/Adverse Reactions: Patient Allergies No Known Allergies Allergy (Verified 10/17/18 11:54) Height: 1.63 m Weight: 62.312 kg Patient Problems: Current Active Problems (Updated 03/29/19 @ 07:26 by Cale Baez MD) Anticoagulated on Coumadin (Acute) Hip fracture (Acute) Humeral surgical neck fracture (Acute) Atrial fibrillation with controlled ventricular rate (Acute) - VTE Risk Labs: VTE Related Lab Results Hgb 9.5 g/dL (12.2-16.2) L D 03/29/19 07:07 Hct 27.9 % (37.0-47.0) L 03/29/19 07:07 Plt Count 134 K/mm3 (142-424) L D 03/29/19 07:07 PT 24.8 seconds (9.4-11.8) H 03/29/19 08:22 INR 2.47 (0.9-1.1) H 03/29/19 08:22 BUN 14 mg/dL (7-18) 03/29/19 07:07 Creatinine 0.64 mg/dL (0.55-1.02) D 03/29/19 07:07 Estimated Creat Clear 41 mL/min (50-200) 03/29/19 07:07 Was VTE Risk Assessment Performed: Yes VTE Score: 5 VTE Risk Level: Low Risk - Prophylaxis VTE Prophylaxis Ordered?: Yes Types of VTE Prophylaxis: TEDS Knee High Location of Applied Device: Bilateral Lower Extremeties - VTE Diagnosis Confirmed Treatment or plan recommended: Continue Current Treatment
--- NOTE | 2019-03-29 13:56 | Consult Report ---
*Admission Date: 03/28/19 Review of Systems - Review of Systems Review of systems:: pertinent systems reviewed and negative unless documented below - *Neurologic Denies abnormal speech, Denies behavioral changes, Denies confusion, Denies frequent falls, Denies headache(s), Denies numbness [facility] History I have reviewed the patient's past medical history: Yes Medical History: Reports:: Atrial Fibrillation, Cancer (SKIN- NOSE), Hypertension, Myocardial Infarction Denies:: Diabetes Mellitus Type 1, Diabetes Mellitus Type 2, Internal Pacemaker *Have you ever received a pneumonia vaccine?: Yes *Have you received a flu vaccine this season?: Yes Other Medical History: Reports: Arthritis, Cataracts, Other Laterality Cases: Right: Other Other Surgeries: Yes: Cholecystectomy. No: Pacemaker - *Social History Educational Level: Completed High School Smoking Status: Never smoker Alcohol Intake: never *Occupational Status:: retired Housing: house Household Members: none *Travel in the last 8 weeks: None - Psychiatric History Expresses thoughts of harming self/others: None Suicide Plan Description: No Plan Family Hx:: Hypertension, Cancer Meds Home Medications Medication Instructions Recorded Confirmed Type amiloride 5 mg-hydrochlorothiazide 1 tab PO DAILY 07/26/18 03/28/19 History 50 mg tablet aspirin 81 mg chewable tablet 81 mg PO DAILY 07/26/18 03/28/19 History Metoprolol Succinate [Toprol XL 50 mg PO DAILY 10/17/18 03/28/19 History 50mg Tablet] Warfarin Sodium [Coumadin 3mg 3.5 mg PO DAILY 03/28/19 03/28/19 History tablet] Ibandronate Sodium 150 mg PO WEEKLY 03/29/19 03/29/19 History Allergies Allergy/AdvReac Type Severity Reaction Status Date / Time No Known Allergies Allergy Verified 10/17/18 11:54 Exam Vital signs and Labs for Last 24 Hours: Temp Pulse Resp BP Pulse Ox 98.6 F 84 18 118/54 L 95 03/29/19 08:00 03/29/19 08:00 03/29/19 08:00 03/29/19 08:00 03/29/19 08:00 Laboratory Results - last 24 hr 03/28/19 18:40: WBC 15.8 H, RBC 4.08 L, Hgb 12.1 L, Hct 37.0, MCV 90.7, MCH 29.8, MCHC 32.8, RDW 13.3, Plt Count 206, MPV 6.5 L, Neut % (Auto) 92.5 H, Lymph % (Auto) 3.2 L, [place] % (Auto) 3.8, Eos % (Auto) 0.3, Baso % (Auto) 0.1, Neut # (Auto) 14.6 H, Lymph # (Auto) 0.5 L, [place] # (Auto) 0.6, Eos # (Auto) 0.1, Baso # (Auto) 0.0, Total Counted 100, Neutrophils % (Manual) 93 H, Lymphocytes % (Manual) 3 L, Monocytes % (Manual) 4, Platelet Estimate Normal, RBC Morphology Normal 03/28/19 18:40: PT 24.7 H, INR 2.46 H 03/28/19 18:40: Sodium 128 L, Potassium 4.1, Chloride 93 L, Carbon Dioxide 28, Anion Gap 11.1, BUN 16, Creatinine 0.86, Estimated Creat Clear 39, Estimated GFR 63, Est GFR ( Amer) 76, Glucose 164 H, Calcium 9.1, Total Bilirubin 0.7, AST 23, ALT 26, Alkaline Phosphatase 98, Total Protein 7.7, Albumin 3.7, Gl obulin 4.0 H, Albumin/Globulin Ratio 0.9 L 03/28/19 18:40: CK-MB (CK-2) 0.6 D 03/28/19 22:20: Urine Color Yellow, Urine Appearance Clear, Urine pH 6.5, Ur Specific [place] 1.015, Urine Protein Negative, Urine Glucose (UA) Negative, Urine Ketones Trace, Urine Blood Trace-l, Urine Nitrate Negative, Urine Bilirubin Negative, Urine Urobilinogen 0.2, Ur Leukocyte Esterase Negative, Urine RBC 5-10, Urine WBC 5-10, Urine Bacteria 1+ 03/29/19 07:07: WBC 8.6 D, RBC 3.11 L, Hgb 9.5 L D, Hct 27.9 L, MCV 89.6, MCH 30.7, MCHC 34.3, RDW 13.7, Plt Count 134 L D, MPV 7.0 L, Neut % (Auto) 80.2 H, Lymph % (Auto) 14.0, [place] % (Auto) 5.5, Eos % (Auto) 0.2, Baso % (Auto) 0.2, Neut # (Auto) 6.9, Lymph # (Auto) 1.2, [place] # (Auto) 0.5, Eos # (Auto) 0.0, Baso # (Auto) 0.0 03/29/19 07:07: Sodium 130 L, Potassium 3.4 L, Chloride 97 L, Carbon Dioxide 26, Anion Gap 10.4, BUN 14, Creatinine 0.64 D, Estimated Creat Clear 41, Estimated GFR 88, Est GFR ( Amer) 107 D, Glucose 115 H D, Calcium 7.9 L D 03/29/19 08:22: PT 24.8 H, INR 2.47 H 03/29/19 12:25: Blood Type O Positive, Antibody Screen Negative I & O for Last 24 hours: Intake & Output 03/27/19 03/28/19 03/29/19 03/30/19 11:59 11:59 11:59 11:59 Intake Total 2403 / 2403 Output Total 725 / 725 Balance 1678 / 1678 Weight 137 lb 6 oz Results - Labs Result Diagrams: 03/30/19 06:50 03/30/19 06:50 Labs: Abnormal lab results 03/28/19 03/28/19 03/28/19 Range/Units 18:40 18:40 18:40 WBC 15.8 H (4.8-10.8) K/mm3 RBC 4.08 L (4.20-5.40) M/mm3 Hgb 12.1 L (12.2-16.2) g/dL Hct (37.0-47.0) % Plt Count (142-424) K/mm3 MPV 6.5 L (7.4-10.4) fl Neut % (Auto) 92.5 H (37.0-80.0) % Lymph % (Auto) 3.2 L (10-50) % Neut # (Auto) 14.6 H (1.8-7.8) K/mm3 Lymph # (Auto) 0.5 L (0.7-4.5) K/mm3 Neutrophils % (Manual) 93 H (42-76) % Lymphocytes % (Manual) 3 L (10-50) % PT 24.7 H (9.4-11.8) seconds INR 2.46 H (0.9-1.1) Sodium 128 L (136-145) mmol/L Potassium (3.5-5.1) mmoL/L Chloride 93 L (98-107) mmol/L Glucose 164 H (74-106) mg/dL Calcium (8.5-10.1) mg/dL Globulin 4.0 H (1.3-3.2) gm/dl Albumin/Globulin Ratio 0.9 L (1.1-1.8) 03/29/19 03/29/19 03/29/19 Range/Units 07:07 07:07 08:22 WBC (4.8-10.8) K/mm3 RBC 3.11 L (4.20-5.40) M/mm3 Hgb 9.5 L D (12.2-16.2) g/dL Hct 27.9 L (37.0-47.0) % Plt Count 134 L D (142-424) K/mm3 MPV 7.0 L (7.4-10.4) fl Neut % (Auto) 80.2 H (37.0-80.0) % Lymph % (Auto) (10-50) % Neut # (Auto) (1.8-7.8) K/mm3 Lymph # (Auto) (0.7-4.5) K/mm3 Neutrophils % (Manual) (42-76) % Lymphocytes % (Manual) (10-50) % PT 24.8 H (9.4-11.8) seconds INR 2.47 H (0.9-1.1) Sodium 130 L (136-145) mmol/L Potassium 3.4 L (3.5-5.1) mmoL/L Chloride 97 L (98-107) mmol/L Glucose 115 H D (74-106) mg/dL Calcium 7.9 L D (8.5-10.1) mg/dL Globulin (1.3-3.2) gm/dl Albumin/Globulin Ratio (1.1-1.8) H & H 03/28/19 03/29/19 Range/Units 18:40 07:07 Hgb 12.1 L 9.5 L D (12.2-16.2) g/dL Hct 37.0 27.9 L (37.0-47.0) % Coagulation 03/28/19 03/29/19 Range/Units 18:40 08:22 INR 2.46 H 2.47 H (0.9-1.1) All other labs normal. Assessment and Plan (1) Hip fracture Current visit: Yes Status: Acute Category: Medical Code(s): S72.009A - Fracture of unspecified part of neck of unspecified femur, initial encounter for closed fracture (2) Anticoagulated on Coumadin Current visit: Yes Status: Acute Category: Medical Code(s): Z51.81 - Encounter for therapeutic drug level monitoring; Z79.01 - [facility] (current) use of anticoagulants (3) Humeral surgical neck fracture Current visit: Yes Status: Acute Category: Medical Code(s): S42.213A - Unspecified displaced fracture of surgical neck of unspecified humerus, initial encounter for closed fracture (4) Fall Current visit: No Status: Acute Category: Medical Code(s): W19.XXXA - Unspecified fall, initial encounter (5) Atrial fibrillation with controlled ventricular rate Current visit: Yes Status: Acute Category: Medical Code(s): I48.91 - Unspecified atrial fibrillation - Assessment and plan all Dx Assessment and Plan for all problems:: I reviewed the clinical and x-ray findings with the patient and her nephew who was with her in the room. I have discussed the diagnosis and management options in detail including both nonsurgical and surgical. I have recommended surgical remediation in the form of a hemiarthroplasty LEFT hip. I explained the procedure, risks and benefits, alternatives and the expected postoperative course. I explained to the patient and her son with drawings of the fracture and the proposed surgical procedure. The complications discussed include but are not limited to infection, injury to nerves and blood vessels, DVT and PE, femur fracture, limb length inequality, dislocation, implant failure, loosening, acetabular wear, osteolysis, periprosthetic femur fracture, heterotopic ossification, abductor weakness and a limp, incomplete relief of pain, incomplete return of function or motion, likely need for further surgery in future including revision, anesthetic/medical complications including heart attack, stroke, transfusion reactions and even . We discussed how any of these events can be devastating. We have discussed nonsurgical alternatives as well. I've explained that the patient is at a significant surgical risk due to her age, medical comorbidities and fragility of the bone. Family and patient seemed to understand and accept these risks. We have discussed nonsurgical alternatives as well. The nonoperative management would essentially consist of prolonged bed rest and traction (skeletal/skin) in bed and pain medication and has exceptionally poor outcome. This could result in nonunion and malunion of the fracture and almost certainly, the patient has a very high risk of decubitus ulcers, UTI, respiratory tract infections, DVT/PE and other complications from being bedridden. I have explained to them that the standard of care for this sort of injuries is surgical throughout the country unless the patient is very ill for surgical management. We also discussed the postoperative course including the rehab and physical therapy required. She lives by herself and may need to go to a short-term rehab place after surgery. All their questions were answered and they verbalized a good understanding. We will obtain a medical clearance from Dr. Baez team. Patient is on long-term warfarin and INR is 2.47 today. She is receiving vitamin K and will recheck INR tomorrow. Plan for surgery tomorrow if INR is less than 1.5. With regards to her left shoulder I will review the CT findings and plan further management accordingly. I have recommended- Type and screen Nothing by mouth after midnight Continue IV fluids DVT prophylaxis as per protocol Analgesia as needed Consent patient for a hemiarthroplasty LEFT hip. Order 2 g of IV Ancef for preoperative prophylaxis to start half an hour before surgery.
[2019-03-30 07:14] LABS: Basophils % 0.1 % (0.1-2.0); Eosinophils # 0.1 K/mm3 (0.0-0.4); Eosinophils % 0.7 % (0.1-12.0); Hematocrit 26.4 % (37.0-47.0); Lymphocytes % 14.3 % (10-50); Mean Corpuscular HGB Conc 34.1 g/dL (31.8-35.4); Mean Corpuscular Hemoglobin 30.5 pg (27.0-31.2); Mean Corpuscular Volume 89.5 fl (81-99); Mean Platelet Volume 6.8 fl (7.4-10.4); Monocytes # 0.5 K/mm3 (0.1-1.0); Monocytes % 7.2 % (1.7-9.3); Neutrophils # 5.6 K/mm3 (1.8-7.8); Neutrophils % 77.6 % (37.0-80.0); Platelet Count 114 K/mm3 (142-424); Red Blood Count 2.95 M/mm3 (4.20-5.40); Red Cell Distribution Width 13.6 % (11.5-17.5); White Blood Count 7.3 K/mm3 (4.8-10.8)
[2019-03-30 07:22] LABS: INR 1.15 (0.9-1.1); Prothrombin Time 11.8 seconds (9.4-11.8)
[2019-03-30 07:25] LABS: Anion Gap 11.2 mEq/L (5-15); Calcium 7.8 mg/dL (8.5-10.1); Potassium 3.2 mmoL/L (3.5-5.1)
--- NOTE | 2019-03-30 07:34 | Progress Note ---
Internal Medicine - PN: Subj *Date: 03/30/19 *Time: 07:32 Interval history: Patient just complains of overall stiffness this morning from laying in traction for the last 24 hours. She is scheduled for surgery this morning. Exam Vital signs and Labs for Last 24 Hours: Temp Pulse Resp BP Pulse Ox 99.3 F 80 18 155/71 H 95 03/30/19 04:00 03/30/19 04:00 03/30/19 04:00 03/30/19 04:00 03/30/19 04:00 Laboratory Results - last 24 hr 03/29/19 07:07: WBC 8.6 D, RBC 3.11 L, Hgb 9.5 L D, Hct 27.9 L, MCV 89.6, MCH 30.7, MCHC 34.3, RDW 13.7, Plt Count 134 L D, MPV 7.0 L, Neut % (Auto) 80.2 H, Lymph % (Auto) 14.0, [place] % (Auto) 5.5, Eos % (Auto) 0.2, Baso % (Auto) 0.2, Neut # (Auto) 6.9, Lymph # (Auto) 1.2, [place] # (Auto) 0.5, Eos # (Auto) 0.0, Baso # (Auto) 0.0 03/29/19 07:07: Sodium 130 L, Potassium 3.4 L, Chloride 97 L, Carbon Dioxide 26, Anion Gap 10.4, BUN 14, Creatinine 0.64 D, Estimated Creat Clear 41, Estimated GFR 88, Est GFR ( Amer) 107 D, Glucose 115 H D, Calcium 7.9 L D 03/29/19 08:22: PT 24.8 H, INR 2.47 H 03/29/19 12:25: Blood Type O Positive, Antibody Screen Negative 03/30/19 06:50: WBC 7.3, RBC 2.95 L, Hgb 9.0 L, Hct 26.4 L, MCV 89.5, MCH 30.5, MCHC 34.1, RDW 13.6, Plt Count 114 L, MPV 6.8 L, Neut % (Auto) 77.6, Lymph % (Auto) 14.3, [place] % (Auto) 7.2, Eos % (Auto) 0.7, Baso % (Auto) 0.1, Neut # (Auto) 5.6, Lymph # (Auto) 1.0, [place] # (Auto) 0.5, Eos # (Auto) 0.1, Baso # (Auto) 0.0 03/30/19 06:50: Sodium 129 L, Potassium 3.2 L, Chloride 94 L, Carbon Dioxide 27, Anion Gap 11.2, BUN 11, Creatinine 0.53 L, Estimated Creat Clear 42, Estimated GFR 110, Est GFR ( Amer) 133 D, Glucose 109 H, Calcium 7.8 L 03/30/19 06:50: PT 11.8, INR 1.15 H I & O for Last 24 hours: Intake & Output 03/27/19 03/28/19 03/29/19 03/30/19 11:59 11:59 11:59 11:59 Intake Total 2403 / 2403 1017 / 1017 Output Total 725 / 725 1100 / 1100 Balance 1678 / 1678 -83 / -83 Weight 137 lb 6 oz 140 lb 5.991 oz Narrative: Patient is awake and alert. Heart has an irregular rate and rhythm. Lungs are clear. Abdomen is soft. Assessment and Plan (1) Hip fracture Current visit: Yes Status: Acute Category: Medical Code(s): S72.009A - Fracture of unspecified part of neck of unspecified femur, initial encounter for closed fracture (2) Anticoagulated on Coumadin Current visit: Yes Status: Acute Category: Medical Code(s): Z51.81 - Encounter for therapeutic drug level monitoring; Z79.01 - [employer] (current) use of anticoagulants (3) Humeral surgical neck fracture Current visit: Yes Status: Acute Category: Medical Code(s): S42.213A - Unspecified displaced fracture of surgical neck of unspecified humerus, initial encounter for closed fracture (4) Fall Current visit: No Status: Acute Category: Medical Code(s): W19.XXXA - Unspecified fall, initial encounter (5) Atrial fibrillation with controlled ventricular rate Current visit: Yes Status: Acute Category: Medical Code(s): I48.91 - Unspecified atrial fibrillation - Assessment and plan all Dx Assessment and Plan for all problems:: Patient coags have improved. Proceed with surgery this morning per Dr. Curry
--- NOTE | 2019-03-30 09:57 | Progress Note ---
Subjective Date: 03/30/19 Time: 08:30 Principal diagnosis: 1. Femoral neck fracture, left 2. Proximal humerus fracture, left PN: Obj Ex Vital signs: Temp Pulse Resp BP Pulse Ox 98.3 F 75 18 141/72 H 93 L 03/30/19 08:00 03/30/19 08:00 03/30/19 08:00 03/30/19 08:00 03/30/19 08:00 Narrative: Laboratory Results - last 24 hr 03/29/19 12:25: Blood Type O Positive, Antibody Screen Negative 03/30/19 06:50: WBC 7.3, RBC 2.95 L, Hgb 9.0 L, Hct 26.4 L, MCV 89.5, MCH 30.5, MCHC 34.1, RDW 13.6, Plt Count 114 L, MPV 6.8 L, Neut % (Auto) 77.6, Lymph % (Auto) 14.3, [place] % (Auto) 7.2, Eos % (Auto) 0.7, Baso % (Auto) 0.1, Neut # (Auto) 5.6, Lymph # (Auto) 1.0, [place] # (Auto) 0.5, Eos # (Auto) 0.1, Baso # (Auto) 0.0 03/30/19 06:50: Sodium 129 L, Potassium 3.2 L, Chloride 94 L, Carbon Dioxide 27, Anion Gap 11.2, BUN 11, Creatinine 0.53 L, Estimated Creat Clear 42, Estimated GFR 110, Est GFR ( Amer) 133 D, Glucose 109 H, Calcium 7.8 L 03/30/19 06:50: PT 11.8, INR 1.15 H Intake & Output 03/27/19 03/28/19 03/29/19 03/30/19 11:59 11:59 11:59 11:59 Intake Total 2403 / 2403 1017 / 1017 Output Total 725 / 725 1100 / 1100 Balance 1678 / 1678 -83 / -83 Weight 137 lb 6 oz 140 lb 5.991 oz - Urinary Catheter Management Allen Cath placed during this visit: yes Insertion date: 03/28/19 Insertion time: 22:20 Progress Note: A&P (1) Hip fracture Status: Acute Assessment and plan: I have reviewed the clinical and x-ray findings with the patient and her niece who is with her in the room. I have discussed the diagnosis and management options in detail including both nonsurgical and surgical. I have recommended surgical remediation in the form of a hemiarthroplasty LEFT hip. I explained the procedure, risks and benefits, alternatives and the expected postoperative course. I explained to the patient and her son with drawings of the fracture and the proposed surgical procedure. The complications discussed include but are not limited to infection, injury to nerves and blood vessels, DVT and PE, femur fracture, limb length inequality, dislocation, implant failure, loosening, acetabular wear, osteolysis, periprosthetic femur fracture, heterotopic ossification, abductor weakness and a limp, incomplete relief of pain, incomplete return of function or motion, likely need for further surgery in future including revision, anesthetic/medical complications including heart attack, stroke, transfusion reactions and even . We discussed how any of these events can be devastating. We have discussed nonsurgical alternatives as well. I've explained that the patient is at a significant surgical risk due to her age, medical comorbidities and fragility of the bone. Family and patient seemed to understand and accept these risks. We have discussed nonsurgical alternatives as well. The nonoperative management would essentially consist of prolonged bed rest and traction (skeletal/skin) in bed and pain medication and has exceptionally poor outcome. This could result in nonunion and malunion of the fracture and almost certainly, the patient has a very high risk of decubitus ulcers, UTI, respiratory tract infections, DVT/PE and other complications from being bedridden. I have explained to them that the standard of care for this sort of injuries is surgical throughout the country unless the patient is very ill for surgical management. We also discussed the postoperative course including the rehab and physical therapy required. She lives by herself and may need to go to a short-term rehab place after surgery. All their questions were answered and they verbalized a good understanding. We will obtain a medical clearance from Dr. Baez team. I have recommended- Crossmatch 2 units of packed cells Continue n.p.o. Continue IV fluids DVT prophylaxis as per protocol Analgesia as needed Consent patient for a hemiarthroplasty LEFT hip. Order 2 g of IV Ancef for preoperative prophylaxis to start half an hour before surgery. Current Visit: Yes (2) Anticoagulated on Coumadin Status: Acute Current Visit: Yes (3) Humeral surgical neck fracture Status: Acute Assessment and plan: I have reviewed the clinical and imaging findings with the patient and her niece. I discussed the diagnosis, natural history and management options in detail including both nonsurgical and surgical. With regards to the fracture management following a detailed discussion about the various surgical and nonsurgical options, she has opted for an open reduction and internal fixation of the fracture. I discussed details of the open reduction and plating of the proximal humerus fracture with or without bone grafting. Following a detailed discussion she wished to proceed with surgery. I discussed the proposed surgical procedure, risks and benefits and alternatives. We've outlined where the incision will be on the skin. Risks of surgery discussed include but are not limited to- infection, bleeding injury to nerves, tendons and blood vessels, bleeding, primary/secondary screw perforation of the humeral head, subacromial impingement, nerve injury/ palsy especially the axillary nerve, avascular necrosis of humeral head, incisional scar (cosmesis), DVT/PE, malunion, nonunion/delayed union, refracture, shoulder/elbow stiffness, persistent pain, CRPS (complex regional pain syndrome- pain, sensory and temperature changes, swelling and stiffness), painful/prominent hardware, loss of fixation/hardware failure, incomplete relief of pain, incomplete return of function, and likely need for further surgery in future and also the risks of anesthesia including heart attack, stroke, and even . We've discussed how there is a small but real possibility of loss of use of the arm, loss of the limb [amputation] or loss of life itself. We've also explained how additional surgery may be required if there are any complications or the fracture fails to heal. We explained the postoperative pain management, recovery and rehabilitation, immobilization required, the likely need for physical therapy, the possibility of stiffness or arthrofibrosis, chronic pain and we've also discussed the option of nonsurgical treatment. We also discussed about possible need for bone grafting including use of synthetic bone graft substitutes. We discussed about possible autologous bone harvesting sites including her iliac crest and middle third of fibula. The patient and her daughter expressed good understanding and have asked appropriate questions. All their questions were answered and they verbalized a good understanding. She desires to proceed with the open reduction internal fixation of her LEFT proximal humerus fracture. Current Visit: Yes (4) Fall Status: Acute Current Visit: No (5) Atrial fibrillation with controlled ventricular rate Status: Acute Current Visit: Yes
--- NOTE | 2019-03-30 19:11 | Progress Note ---
[facility] Anesthesia Checklist - Patient Identification Patient Identification: Arm Band, Verbal (Name & ) - Structural Data Admitted From: Home Planned Operative Procedure/s: L Hip hemiarthroplasty, L shoulder proximal hemiarthroplasty/ORIF Consent for Planned Operative Procedure(s) Verified: Yes Verified Documents: Surgical Consent, History and Physical - NPO Status Verified Time NPO: 00:00 - Chart Verification Results Verified: CBC, BMP, PT, PTT, INR - Additional verifications Anesthesia Reactions: No - Airway Assessment C-Spine Mobility Assessed: Yes (Limited neck ROM) TMJ Mobility Assessed: Yes Dentition: Poor Dentition (Missing teeth) - Neurological Assessment Level of Consciousness: Awake Hx Seizures: No Numbness or tingling in extremities: No - Genitourinary Assessment Urinary Catheter Present: Uretheral (Allen) - Anesthesia Plan Anesthesia Risk discussed: Yes Anesthesia Plan: Verified ASA Class: III Anesthesia Type: General (GETA, SAB, PNB (ISB/SCB)) [facility] History Medical History: Reports:: Atrial Fibrillation, Cancer (SKIN- NOSE), Hypertension, Myocardial Infarction Denies:: Diabetes Mellitus Type 1, Diabetes Mellitus Type 2, Internal Pacemaker *Have you ever received a pneumonia vaccine?: Yes *Have you received a flu vaccine this season?: Yes Other Medical History: Reports: Arthritis, Cataracts, Other Laterality Cases: Right: Other Other Surgeries: Yes: Cholecystectomy. No: Pacemaker - *Social History Educational Level: Completed High School Smoking Status: Never smoker Alcohol Intake: never *Occupational Status:: retired Housing: house Household Members: none *Travel in the last 8 weeks: None - Psychiatric History Expresses thoughts of harming self/others: None Suicide Plan Description: No Plan Family Hx:: Hypertension, Cancer
--- NOTE | 2019-03-30 19:12 | Progress Note ---
[facility] Anesthesia Record Part I Intake, IV Amount: 2,900 Estimated blood loss (mL): 600 Urine output (mL): 600 Blood Products used (#): none Blood Pressure: 146/75 SaO2: 100 Pulse Rate: 86 Respiratory Rate: 14 Temperature: 97.9 F Patient is:: Awake, Stable Stable to PACU at:: 19:00
--- NOTE | 2019-03-30 19:12 | Progress Note ---
[facility] Anesthesia Record Part II Discharge Time: 19:30 Destination: Medical Surgical Department PACU nurse assessment reviewed?: Yes Patient Condition:: Good Anesthesia Complications:: None Swallowing reflex intact?: Yes Cyanosis?: No
[2019-03-30 19:57] LABS: Hemoglobin 7.9 g/dL (12.2-16.2)
[2019-03-30 19:58] LABS: Hematocrit 23.5 % (37.0-47.0)
--- NOTE | 2019-03-30 20:15 | Operative Note ---
Date of procedure: 03/30/19 Pre-op Diagnosis:: 1. Subcapital femoral neck fracture, left hip 2. Proximal humerus fracture, left shoulder Post-op Diagnosis:: Same Procedure performed:: 1. Uncemented bipolar hemiarthroplasty, left hip 2. Open reduction and internal fixation, left proximal humerus Surgeon:: Yon Curry MD Facility Engineer(s):: Sarah Martinez WOOD LAST MAKER:: Zachariah Henley Anesthesia: GETA, regional (Supraclavicular nerve block left), spinal Estimated blood loss (mL): 500 Operative findings:: 1. Displaced sub capital femoral neck fracture of the left hip as noted on the preoperative hip x-rays. The articular cartilage of the acetabulum is well maintained without evidence of any significant arthritis. The proximal femur bone quality is poor with significant osteopenia noted. 2. Comminuted and displaced fracture of the proximal humerus with the varus impaction of the proximal fragment. There was some medial comminution along the calcar as noted on the preoperative imaging. Significant void was noted in the humeral head from impaction after fixing the fracture. This gap was filled with Hydroset synthetic bone graft substitute. The rotator cuff was noted to be intact. Significant osteopenia of the proximal humerus noted. Operative note:: On the day of the procedure the [patient and family were] met on the floor, and a physical examination was performed. The operating side and site were marked and initialed by me. I reviewed the diagnosis, natural history and management options in detail including both the nonsurgical and surgical. Given the nature of the fracture, I have recommended surgery in the form of a hemiarthroplasty of the left hip. I discussed the procedure, risks and benefits, alternatives, potential complications and expected outcomes with [the patient and family]. The complications discussed include but are not limited to infection, injury to nerves and blood vessels, DVT and PE, femur fracture, limb length inequality, dislocation, implant failure, loosening, acetabular wear, osteolysis, periprosthetic femur fracture, heterotopic ossification, abductor weakness and a limp, incomplete relief of pain, incomplete return of function or motion, likely need for further surgery in future including revision, anesthetic/medical complications including heart attack, stroke, transfusion reactions and even . We discussed how any of these events can be devastating. We have discussed nonsurgical alternatives as well. We also discussed the postoperative course including the rehab and physical therapy required. [Patient/family] understood the risks, agreed to proceed with surgery, [signed the consent form] and no guarantees or assurances were given or implied. The patient was brought to the operating room and a [spinal/general] anesthesia was administered by the assembler small products. The patient was then transferred onto the operating table and positioned in the right lateral decubitus position with the left hip facing upwards. All the bony prominences were well-padded. The left lower extremity was then prepped and draped in the usual sterile fashion. The entire operative team used isolation suits and room traffic was controlled. The surgical landmarks and incision was marked over the skin with a marking pen. Ioban sterile drape was used to cover the operative site and isolate the perineum completely from the operative field. Administration of [2 g of prophylactic IV Ancef] was confirmed with the anesthetic team. A preprocedure timeout was performed as per hospital protocol. A posterior approach was used to the hip joint. An electrocautery was used for hemostasis. The skin incision was made centering over the posterior border of the greater trochanter extending posteriorly in a curvilinear fashion across the buttock. The dissection was carried through subcutaneous tissue down to the fascia teo. The fascia teo and gluteus fascia were split and a Charnley retractor was placed. The trochanteric bursa was then removed with blunt dissection. The sciatic nerve was identified and kept out of the harm's way throughout the rest of the procedure. The hip was then internally rotated and the fat over the external rotators was cleared with a sponge. The short external rotator muscles were identified, a tag stitch was placed near their insertion, and they were divided close to the greater trochanter with electrocautery. This exposed the joint capsule which was opened with a T shaped incision and tag stitches were applied to both the leaves of the capsule. Upon entering the joint capsule, a fracture hematoma was noted as well as the displaced sub-capital femoral neck fracture. A corkscrew was then used to remove the femoral head from the acetabulum and passed to the orthophotography technician to be sized on the back table. It measured 46 mm. All bony fragments were then removed from the acetabulum and surrounding soft tissue. The acetabulum was then inspected and found to be clear. The articular cartilage was noted to be well maintained without any significant arthritic changes. Our attention was then turned to the preparation of proximal femur where a cutting guide was used to zuly the neck for the femoral neck cut. An oscillating saw was then used to finish the femoral cut. A box osteotome was then used to remove the bone from the proximal femur. A canal entry reamer was then used to open the femoral canal paying close attention to keep the reamer in a lateral position. Next we performed femoral broaching starting with a small broach, making efforts to lateralize the broach. The broaching was continued sequentially up to size 8 broach. We found this to be a very good fit without any rocking. We then used the calcar reamer to finish the femoral preparation. We then performed a trial reduction using the size 8 broach, -4 neck and 46 mm bipolar head. The hip was taken through range of motion and tested in adduction, internal and external rotation as well as with a shuck and posteriorly directed force on a flexed hip. It was noted that the hip was very stable with these trial components throughout the range of motion. We also noted that the limb lengths were equal with these components. Next, the trial components were removed and the femur and acetabulum were irrigated with pulse lavage and suctioned out. The size 8 Tatum accolade 127 degree femoral stem was introduced and seated to the appropriate level. This gave us a very good fit without any play whatsoever. We then irrigated and dried the Wasserman taper and then placed the definitive 46 mm bipolar femoral head assembly on the stem and tapped into place. The hip was then reduced and again taken through range of motion and noted to be stable. The limb length was also well corrected. The hip joint was then soaked with dilute Betadine solution for 3 minutes, then suctioned out and irrigated with normal saline pulse lavage. [At this point I also injected the capsule and soft tissue with the local anesthetic cocktail (0.5 percent bupivacaine 200 mg +10 mg of morphine +600 g of epinephrine +750 mg of cefuroxime +30 mg of ketorolac diluted in normal saline to make up a total volume of 120 mL).] We confirmed good hemostasis and then proceeded to close the wound. The capsule was closed with [interrupted #1 Vicryl sutures followed by reattachment of the external rotators to the greater trochanter with #1 Vicryl sutures. Next the fascia teo and the gluteus fascia were closed with #1 Vicryl sutures]. The wound was then again irrigated copiously with pulse lavage and suctioned dry. Next the subcutaneous tissues were closed with [2-0 Vicryl sutures. The skin was closed with 4-0 Monocryl subcuticular sutures, Dermabond and Steri-Strips]. Sterile dressings were applied consisting of Silverlon, 4 x 4 and ABDs as well as adhesive tape]. No drains were placed. The patient was then transferred from the operating table onto the bed. The leg lengths were again checked in supine position and noted to be equal. An abduction pillow was placed between the legs. Patient tolerated the procedure well and there were no immediate complications. Swab, needle and instrument counts were correct according to the scrub team at the end of the procedure. Fluoroscopic image in the OR Portable X-rays of the left hip AP and lateral views were obtained in the recovery area and noted to be satisfactory. Postoperatively, continue standard precautions for a posterior hip approach. To mobilize weightbearing as tolerated with the help of a walker by physical therapist and to commence standard physical therapy and precautions for a posterior hip approach. Implant: [employer] Accolade TMGF plus 127 degree neck angle V 40, hip stem- size 8 Tatum UHR universal head bipolar component-46 mm outer diameter/28 mm inner diameter Caleb LFIT V40 femoral head, 28 mm outer diameter, -4 mm offset (Industry assistance representative: [Franky Alfaro] from [employer]) 2. ORIF left proximal humerus: The patient was brought to the operating room, a general anesthesia and interscalene block was administered by the anesthesia team. She was placed in a well-padded beach chair position. The C-arm was brought from the top and the fracture was screened under fluoroscopic guidance in multiple planes. The LEFT u pper extremity was then prepped and draped in the usual sterile fashion. Administration of prophylactic antibiotics was confirmed with the anesthesia team. A preprocedure timeout was performed as per the hospital protocol. An anterolateral acromial approach was planned for the proximal humerus fixation. The bony landmarks of the shoulder were marked with a skin marker on the location of the axillary nerve was marked on the skin at about 6 cm from the acromial edge. Then the skin incision was made starting at the anterolateral edge of the acromion and extending distally just proximal to the deltoid insertion. The dissection was carried through the subcutaneous tissue down to the deltoid muscle. The anterior raphae of the deltoid was identified and the muscle was split in line with the fibers. A wad of muscle tissue was left as a bridge at the level of the axillary nerve to protect the nerve from injury. The muscle was again split below the level of the nerve. This gave us a very good ex posure to the proximal humerus. Then the subdeltoid and subacromial bursa was excised exposing the rotator cuff and proximal humerus. A crescentric shaped full-thickness rotator cuff tear measuring about 1.5 x 1 cm was noted involving the supraspinatus and part of the infraspinatus tendon. Then the biceps tendon was identified in the groove and protected throughout. Stay sutures were placed through the subscapularis, supraspinatus and infraspinatus tendons near their insertion. Then the fracture line was identified and dis-impacted with an elevator. The fracture was essentially a two-part fracture with the tuberosities intact. However there was significant medial comminution along the calcar. The fracture was then reduced and provisionally fixed in position with K wires. Then a 4 holed Caleb proximal humerus locking plate was selected and slid along the lateral border of the proximal humerus under the axillary nerve. The nerve was carefully protected throughout the procedure. The plate was then provisionally fixed to the distal fragment with a cortical screw through the oval hole. Then the humeral head was reduced back onto the plate under fluoroscopic guidance and provisionally fixed with K wires. After confirming satisfactory reduction and provisional fixation under fluoroscopic guidance in multiple planes we proceeded with definitive fixation. Because of severe comminution along the medial aspect anatomic reduction could not be obtained. Using the angle guides multiple locking screws were placed into the humeral head sequentially from proximal to distal. After this the plate was fixed to the distal fragment with cortical screws. This gave us a very stable construct. This was screened under fluoroscopic guidance in multiple planes and we made sure that none of the s crews were penetrating through the humeral head. We then freshened the edges of the rotator cuff tear and repaired the cuff with [id number] sutures using #2 Ethibond sutures. Then the previously placed sutures through the rotator cuff tendons were passed through the suture holes in the plate and tied securely providing a very good hybrid fixation. After this, through the central hole in the plate 15 mL of Hydroset synthetic bone graft was injected into the fracture site. We screened the construct under image intensifier and noted that overall a very satisfactory reduction was obtained and stable fixation was performed. Fluoroscopic images were obtained and stored digitally. The wound was then thoroughly irrigated with normal saline. Hemostasis was obtained with diathermy cautery. The wound was then closed in layers with 2-0 Vicryl, 2-0 Vicryl and 4-0 subcuticular Monocryl sutures and Steri-Strips to the skin. The skin edges were infiltrated with the 10 mL of 0.5 percent Marcaine with epinephrine. Sterile dressings were applied. The arm was then placed in an arm sling with abduction pillow. The patient was then reversed from the anesthetic and transferred onto the bed. She was then transferred to the postoperative recovery area in a stable condition. She tolerated the procedure well and there were no immediate complications. At the end of the procedure swab, needle and instrument counts were correct according to the scrub team. A portable x-ray of the shoulder was obtained in the recovery area showing a satisfactory reduction and fixation of the fracture. Postoperatively patient was admitted for observation, analgesia and two further doses of postoperative antibiotics. EBL (ml): 200 Implant: Caleb AxSOS 3 Titanium Locking Plate and screws- 3 holed plate and multiple locking and nonlocking screws used. 15 mL of Hydrocet synthetic bone substitute used to fill the defect in the humeral head. (Industry assistance representative: Zoran Greenfield from [employer]) Condition: stable Disposition: PACU Specimens:: None Complications:: None
--- NOTE | 2019-03-30 21:11 | Progress Note ---
Subjective Date: 03/30/19 Time: 20:30 Principal diagnosis: 1. Femoral neck fracture, left 2. Proximal humerus fracture, left Interval history: Patient is status post 1. Bipolar hemiarthroplasty LEFT hip; 2. ORIF left proximal humerus, post op day #0. Patient is lying down in the bed. Patient says she has been better but reports no particular complaints. She reports minimal pain over her left hip and no pain in her left shoulder. She is also reporting some nausea but no vomiting. PN: Obj Ex Vital signs: Temp Pulse Resp BP Pulse Ox 97.9 F 79 18 154/76 H 100 03/30/19 19:46 03/30/19 19:46 03/30/19 19:46 03/30/19 19:46 03/30/19 19:46 Narrative: Exam General appearance: Drowsy but easily arousable and engaging in meaningful conversation; no acute distress Cardiovascular: Normal peripheral pulses Respiratory: No respiratory distress noted, speaks in full sentences ABD: soft and non tender Genitourinary: Catheter in situ. On examination of the lower extremities the limb lengths are equal. Thigh and calf are soft and nontender. On examination of the LEFT hip the dressings are clean, dry and intact. There is no soakage of the dressings. Distal pulses are 1+. Distal sensation is intact to light touch throughout. On examination of her LEFT shoulder, the surgical dressings are clean dry and intact. No soakage of dressing is noted. She is in an arm sling. The arm is still numb and paralyzed from preoperative nerve block. Distal pulses 2+. - Urinary Catheter Management Allen Cath placed during this visit: yes Urethral indwelling: Yes Reason for continuing: Surgical procedure Insertion date: 03/28/19 Insertion time: 22:20 Progress Note: A&P (1) Hip fracture Status: Acute Current Visit: Yes (2) Anticoagulated on Coumadin Status: Acute Current Visit: Yes (3) Humeral surgical neck fracture Status: Acute Current Visit: Yes (4) Fall Status: Acute Current Visit: No (5) Atrial fibrillation with controlled ventricular rate Status: Acute Current Visit: Yes Assessment and Plan for All Diagnoses:: I have reviewed the clinical and operative findings and procedure performed with the patient and family. Patient is doing well and reports no immediate postoperative problems. Her postoperative H&H and recommend transfusion of 2 units of packed cells tonight. Patient can be mobilized on the first postoperative day weightbearing as tolerated on the LEFT lower extremity. She should be strictly nonweightbearing on her left upper extremity. This would complicate her rehab. Patient can be restarted on warfarin as per Dr. Baez; until the INR is therapeutic DVT prophylaxis with Lovenox recommended. Continue abduction pillow when in bed and continue standard precautions for the posterior approach hip replacement. Case management consult regarding discharge planning. Continue medical management as per Dr. Baez.
[2019-03-31 04:32] LABS: Basophils % 0.2 % (0.1-2.0); Eosinophils % 0.1 % (0.1-12.0); Hematocrit 33.5 % (37.0-47.0); Lymphocytes # 0.6 K/mm3 (0.7-4.5); Lymphocytes % 4.3 % (10-50); Mean Corpuscular HGB Conc 34.1 g/dL (31.8-35.4); Mean Corpuscular Hemoglobin 30.2 pg (27.0-31.2); Mean Corpuscular Volume 88.5 fl (81-99); Mean Platelet Volume 7.5 fl (7.4-10.4); Monocytes # 0.6 K/mm3 (0.1-1.0); Monocytes % 4.8 % (1.7-9.3); Neutrophils # 11.9 K/mm3 (1.8-7.8); Neutrophils % 90.7 % (37.0-80.0); Platelet Count 112 K/mm3 (142-424); Red Blood Count 3.79 M/mm3 (4.20-5.40); Red Cell Distribution Width 13.9 % (11.5-17.5); White Blood Count 13.2 K/mm3 (4.8-10.8)
[2019-03-31 04:34] LABS: Hemoglobin 11.4 g/dL (12.2-16.2)
[2019-03-31 04:49] LABS: Albumin Level 2.4 gm/dL (3.4-5.0); Albumin/Globulin Ratio 0.8 (1.1-1.8); Anion Gap 12.3 mEq/L (5-15); Bilirubin,Total 0.7 mg/dL (0.2-1.0); Calcium 7.7 mg/dL (8.5-10.1); Globulin 3.2 gm/dl (1.3-3.2); Potassium 3.3 mmoL/L (3.5-5.1); Total Protein,Serum 5.6 gm/dL (6.4-8.2)
[2019-03-31 05:34] LABS: Anisocytosis 1+; Lymphocytes % 4 % (10-50); Monocytes % 2 % (2-9); Neutrophils % 94 % (42-76); Total Cells Counted 100
--- NOTE | 2019-03-31 07:37 | Progress Note ---
Internal Medicine - PN: Subj *Date: 03/31/19 *Time: 07:35 Interval history: Patient underwent left bipolar hemiarthroplasty of the hip and ORIF of the left shoulders humeral neck fracture yesterday. Postoperatively she received 2 units of packed red blood cells. She reports mild pain in the left shoulder and no pain in the left hip. Exam Vital signs and Labs for Last 24 Hours: Temp Pulse Resp BP Pulse Ox 98.0 F 83 16 143/75 H 95 03/31/19 04:00 03/31/19 04:00 03/31/19 04:00 03/31/19 04:00 03/31/19 04:00 Laboratory Results - last 24 hr 03/29/19 12:25: Blood Type O Positive, Antibody Screen Negative, Crossmatch (AHG) See Detail 03/30/19 19:45: Blood Type Confirm O Positive 03/30/19 19:45: Hgb 7.9 L*, Hct 23.5 L* 03/31/19 04:10: WBC 13.2 H D, RBC 3.79 L D, Hgb 11.4 L D, Hct 33.5 L, MCV 88.5, MCH 30.2, MCHC 34.1, RDW 13.9, Plt Count 112 L, MPV 7.5, Neut % (Auto) 90.7 H, Lymph % (Auto) 4.3 L, Alfalfa % (Auto) 4.8, Eos % (Auto) 0.1, Baso % (Auto) 0.2, Neut # (Auto) 11.9 H, Lymph # (Auto) 0.6 L, Alfalfa # (Auto) 0.6, Eos # (Auto) 0.0, Baso # (Auto) 0.0, Total Counted 100, Neutrophils % (Manual) 94 H, Lymphocytes % (Manual) 4 L, Monocytes % (Manual) 2, Platelet Estimate Normal, RBC Morphology Not Reportable, Anisocytosis 1+ 03/31/19 04:10: Sodium 133 L, Potassium 3.3 L, Chloride 98, Carbon Dioxide 26, Anion Gap 12.3, BUN 14 D, Creatinine 0.71 D, Estimated Creat Clear 42, Estimated GFR 78, Est GFR ( Amer) 95 D, Glucose 179 H D, Calcium 7.7 L, Total Bilirubin 0.7, AST 25, ALT 18 D, Alkaline Phosphatase 67, Total Protein 5.6 L D, Albumin 2.4 L, Globulin 3.2, Albumin/Globulin Ratio 0.8 L I & O for Last 24 hours: Intake & Output 03/28/19 03/29/19 03/30/19 03/31/19 11:59 11:59 11:59 11:59 Intake Total 2403 / 2403 1017 / 1017 3362 / 3362 Output Total 725 / 725 1100 / 1100 1350 / 1350 Balance 1678 / 1678 -83 / -83 2011 Weight 137 lb 6 oz 140 lb 5.991 oz 140 lb 5.999 oz Narrative: Patient is awake and alert this morning. Lungs remain clear to auscultation. Heart has a regular rate and rhythm this morning. Surgical wounds were not inspected by me Assessment and Plan (1) Hip fracture Current visit: Yes Status: Acute Category: Medical Code(s): S72.009A - Fracture of unspecified part of neck of unspecified femur, initial encounter for closed fracture (2) Anticoagulated on Coumadin Current visit: Yes Status: Acute Category: Medical Code(s): Z51.81 - Encounter for therapeutic drug level monitoring; Z79.01 - half-way (current) use of anticoagulants (3) Humeral surgical neck fracture Current visit: Yes Status: Acute Category: Medical Code(s): S42.213A - Unspecified displaced fracture of surgical neck of unspecified humerus, initial encounter for closed fracture (4) Fall Current visit: No Status: Acute Category: Medical Code(s): W19.XXXA - Unspecified fall, initial encounter (5) Atrial fibrillation with controlled ventricular rate Current visit: Yes Status: Acute Category: Medical Code(s): I48.91 - Unspecified atrial fibrillation (6) Anemia of chronic disease Current visit: Yes Status: Acute Category: Medical Code(s): D63.8 - Anemia in other chronic diseases classified elsewhere (7) Anemia due to blood loss, acute Current visit: No Status: Acute Category: Medical Code(s): D62 - Acute posthemorrhagic anemia - Assessment and plan all Dx Assessment and Plan for all problems:: 1. Restart warfarin 2. PT evaluation today 3. Care management has begun working on finding a bed at a shelter facility
--- NOTE | 2019-03-31 14:00 | Progress Note ---
Subjective Date: 03/31/19 Time: 13:00 Principal diagnosis: 1. Femoral neck fracture, left 2. Proximal humerus fracture, left Interval history: Patient is status post 1. Bipolar hemiarthroplasty LEFT hip; 2. ORIF left proximal humerus, post op day #1. Patient is lying down in the bed. Patient says she has been feeling very and reports no particular complaints. She reports minimal pain over her left hip and left shoulder. Also reports some residual numbness in her left hand. She is eating drinking well and reports no nausea or vomiting today. She started mobilizing with the help of physical therapy today. She received 2 units of packed cells postoperatively for low H&H. PN: Obj Ex Vital signs: Temp Pulse Resp BP Pulse Ox 98.4 F 90 18 136/80 94 L 03/31/19 12:00 03/31/19 12:00 03/31/19 12:00 03/31/19 12:00 03/31/19 12:00 Narrative: Laboratory Results - last 24 hr 03/29/19 12:25: Blood Type O Positive, Antibody Screen Negative, Crossmatch (AHG) See Detail 03/30/19 19:45: Blood Type Confirm O Positive 03/30/19 19:45: Hgb 7.9 L*, Hct 23.5 L* 03/31/19 04:10: WBC 13.2 H D, RBC 3.79 L D, Hgb 11.4 L D, Hct 33.5 L, MCV 88.5, MCH 30.2, MCHC 34.1, RDW 13.9, Plt Count 112 L, MPV 7.5, Neut % (Auto) 90.7 H, Lymph % (Auto) 4.3 L, [place] % (Auto) 4.8, Eos % (Auto) 0.1, Baso % (Auto) 0.2, Neut # (Auto) 11.9 H, Lymph # (Auto) 0.6 L, [place] # (Auto) 0.6, Eos # (Auto) 0.0, Baso # (Auto) 0.0, Total Counted 100, Neutrophils % (Manual) 94 H, Lymphocytes % (Manual) 4 L, Monocytes % (Manual) 2, Platelet Estimate Normal, RBC Morphology Not Reportable, Anisocytosis 1+ 03/31/19 04:10: Sodium 133 L, Potassium 3.3 L, Chloride 98, Carbon Dioxide 26, Anion Gap 12.3, BUN 14 D, Creatinine 0.71 D, Estimated Creat Clear 42, Es timated GFR 78, Est GFR ( Amer) 95 D, Glucose 179 H D, Calcium 7.7 L, Total Bilirubin 0.7, AST 25, ALT 18 D, Alkaline Phosphatase 67, Total Protein 5.6 L D, Albumin 2.4 L, Globulin 3.2, Albumin/Globulin Ratio 0.8 L Intake & Output 03/29/19 03/30/19 03/31/19 04/01/19 11:59 11:59 11:59 11:59 Intake Total 2403 / 2403 1017 / 1017 3362 / 3362 Output Total 725 / 725 1100 / 1100 1350 / 1350 Balance 1678 / 1678 -83 / -83 2011 Weight 137 lb 6 oz 140 lb 5.991 oz 140 lb 5.999 oz Exam General appearance: Alert, awake; no acute distress Cardiovascular: Normal peripheral pulses Respiratory: No respiratory distress noted, speaks in full sentences ABD: soft and non tender Genitourinary: Catheter in situ. On examination of the lower extremities the limb lengths are equal. Thigh and calf are soft and nontender. On examination of the LEFT hip the dressings are clean, dry and intact. There is no soakage of the dressings. Distal pulses are 1+. Distal sensation is intact to light touch throughout. She has got good foot and ankle movements. On examination of her LEFT shoulder, the surgical dressings are clean dry and intact. No soakage of dressings is noted. She is in an arm sling. There is extensive ecchymosis over the upper arm. The still has some residual numbness over the left hand. She has good range of elbow, wrist and finger movements. Distal pulses 2+. - Urinary Catheter Management Allen Cath placed during this visit: yes Urethral indwelling: Yes Reason for continuing: Surgical procedure Insertion date: 03/28/19 Insertion time: 22:20 Progress Note: A&P (1) Hip fracture Status: Acute Current Visit: Yes (2) Anticoagulated on Coumadin Status: Acute Current Visit: Yes (3) Humeral surgical neck fracture Status: Acute Current Visit: Yes (4) Fall Status: Acute Current Visit: No (5) Atrial fibrillation with controlled ventricular rate Status: Acute Current Visit: Yes (6) Anemia of chronic disease Status: Acute Current Visit: Yes (7) Anemia due to blood loss, acute Status: Acute Current Visit: No Assessment and Plan for All Diagnoses:: I have reviewed the clinical findings and progress with the patient and her friend. Patient is doing well and reports no postoperative problems. Continue PT/mobilization weightbearing as tolerated on the LEFT lower extremity. She should continue be strictly nonweightbearing on her left upper extremity. Patient was restarted on warfarin today by Dr. Baez; continue Lovenox until the INR is therapeutic. Continue abduction pillow when in bed and continue standard precautions for the posterior approach hip replacement. Discontinue urinary catheter and discontinue IV fluids. Case management looking into discharge pl anning. Continue medical management as per Dr. Baez.
[2019-04-01 07:35] LABS: Basophils % 0.1 % (0.1-2.0); Eosinophils # 0.1 K/mm3 (0.0-0.4); Eosinophils % 0.6 % (0.1-12.0); Hematocrit 27.5 % (37.0-47.0); Hemoglobin 9.6 g/dL (12.2-16.2); Lymphocytes # 1.4 K/mm3 (0.7-4.5); Lymphocytes % 14.6 % (10-50); Mean Corpuscular HGB Conc 34.8 g/dL (31.8-35.4); Mean Corpuscular Volume 89.1 fl (81-99); Mean Platelet Volume 7.2 fl (7.4-10.4); Monocytes # 0.5 K/mm3 (0.1-1.0); Monocytes % 5.4 % (1.7-9.3); Neutrophils # 7.8 K/mm3 (1.8-7.8); Neutrophils % 79.4 % (37.0-80.0); Platelet Count 126 K/mm3 (142-424); Red Blood Count 3.08 M/mm3 (4.20-5.40); Red Cell Distribution Width 14.4 % (11.5-17.5); White Blood Count 9.9 K/mm3 (4.8-10.8)
--- NOTE | 2019-04-01 07:35 | Progress Note ---
Internal Medicine - PN: Subj *Date: 04/01/19 *Time: 07:33 Interval history: Patient has no complaints this morning. She does tell me she urinated multiple times overnight. Nursing staff reports she did have an episode of cough with green sputum production. Patient notices that her voice is hoarse this morning. She has not had any fevers. She did well with physical therapy yesterday. She has been accepted to [facility] and we are waiting labs this morning. Exam Vital signs and Labs for Last 24 Hours: Temp Pulse Resp BP Pulse Ox 98.4 F 71 16 134/70 97 04/01/19 04:00 04/01/19 04:00 04/01/19 04:00 04/01/19 04:00 04/01/19 04:00 I & O for Last 24 hours: Intake & Output 03/29/19 03/30/19 03/31/19 04/01/19 11:59 11:59 11:59 11:59 Intake Total 2403 / 2403 1017 / 1017 3362 / 3362 620 / 620 Output Total 725 / 725 1100 / 1100 1350 / 1350 1300 / 1300 Balance 1678 / 1678 -83 / -83 2011 / 2011 -680 / -680 Weight 137 lb 6 oz 140 lb 5.991 oz 140 lb 5.999 oz 144 lb 7 oz Microbiology Reports for the Last 24 Hours: Microbiology 03/31/19 23:19 Sputum - Expectorated Sputum Gram Stain - Final Narrative: Patient appears well in no distress. Oropharynx is moist and clear. Lungs remain clear to auscultation. Heart has a regular rate and rhythm. Assessment and Plan (1) Hip fracture Current visit: Yes Status: Acute Category: Medical Code(s): S72.009A - Fracture of unspecified part of neck of unspecified femur, initial encounter for closed fracture (2) Anticoagulated on Coumadin Current visit: Yes Status: Acute Category: Medical Code(s): Z51.81 - Encounter for therapeutic drug level monitoring; Z79.01 - manager intermediate (current) use of anticoagulants (3) Humeral surgical neck fracture Current visit: Yes Status: Acute Category: Medical Code(s): S42.213A - Unspecified displaced fracture of surgical neck of unspecified humerus, initial encounter for closed fracture (4) Fall Current visit: No Status: Acute Category: Medical Code(s): W19.XXXA - Unspecified fall, initial encounter (5) Atrial fibrillation with controlled ventricular rate Current visit: Yes Status: Acute Category: Medical Code(s): I48.91 - Unspecified atrial fibrillation (6) Anemia of chronic disease Current visit: Yes Status: Acute Category: Medical Code(s): D63.8 - Anemia in other chronic diseases classified elsewhere (7) Anemia due to blood loss, acute Current visit: No Status: Acute Category: Medical Code(s): D62 - Acute posthemorrhagic anemia (8) Urinary frequency Current visit: Yes Status: Acute Category: Medical Code(s): R35.0 - Frequency of micturition - Assessment and plan all Dx Assessment and Plan for all problems:: 1. Await CBC and if H&H is stable [place] [facility] [place] 2. Check urinalysis
--- NOTE | 2019-04-01 07:40 | Discharge Summary ---
General - General Admission date:: 03/28/19 Discharge date: 04/01/19 HPI HPI: 83-year-old female presented to the emergency department after a fall. Patient was unable to get back up on her own and was ultimately found and brought to the emergency department. In the emergency department she was found to have a left humeral fracture and a left subcapital hip fracture. Patient is been admitted for orthopedic consultation. Patient tells me this morning that she fell by tripping over a powell. She denies loss of consciousness, chest pain, shortness of breath. Patient had prior pelvic fracture approximately 1 year ago. Patient takes warfarin for atrial fibrillation. Her INR was in a therapeutic range yesterday evening in the emergency department and she was given oral vitamin K to reverse this. Hospital Course Hospital Course: Patient was admitted for her left humeral neck fracture and left hip fracture. Dr. Curry of orthopedic with service was consulted. Dr. Curry planned for surgery on March 30 which would allow time for patient's anticoagulant to be reversed. On admission her warfarin was held and patient was given oral vitamin K. The next morning when INR was unchanged patient was given subcutaneous vitamin K. On the day of surgery coags have normalized. Dr. Curry proceeded with ORIF of left humeral neck fracture and bipolar hemiarthroplasty of left hip. Patient required postoperative transfusion of 2 units of packed red blood cells. The day after surgery patient was mobilized. Patient's warfarin was restarted the day after surgery and will require continued monitoring. Once postop anemia had stabilized patient was discharged to [facility] to continue the rehab process. Mental status: Average Rehab potential: Good Prognosis: Good Objective Vital signs: Temp Pulse Resp BP Pulse Ox 98.4 F 71 16 134/70 97 04/01/19 04:00 04/01/19 04:00 04/01/19 04:00 04/01/19 04:00 04/01/19 04:00 DS: Diagnosis - Discharge Diagnosis (1) Hip fracture Status: Acute (2) Anticoagulated on Coumadin Status: Acute (3) Humeral surgical neck fracture Status: Acute (4) Fall Status: Acute (5) Atrial fibrillation with controlled ventricular rate Status: Acute (6) Anemia of chronic disease Status: Acute (7) Anemia due to blood loss, acute Status: Acute (8) Urinary frequency Status: Acute Discharge Plan - Patient Discharge Instructions ACTIVITY: Continue current activity DIET: continue same diet Patient Instructions: Hip Fracture, Fracture, DI for Hip Fracture, Surgical Site Infection, Coumadin Vitamin K/ Diet, Coumadin Therapy Booklet - Follow up Plan Disposition: [facility] Home Medications: Home Medications Medication Instructions Recorded Confirmed Type amiloride 5 mg-hydrochlorothiazide 1 tab PO DAILY 07/26/18 03/28/19 History 50 mg tablet aspirin 81 mg chewable tablet 81 mg PO DAILY 07/26/18 03/28/19 History Metoprolol Succinate [Toprol XL 50 mg PO DAILY 10/17/18 03/28/19 History 50mg Tablet] Warfarin Sodium [Coumadin 3mg 3.5 mg PO DAILY 03/28/19 03/28/19 History tablet] Ibandronate Sodium 150 mg PO WEEKLY 03/29/19 03/29/19 History Hydrocod/Acet 5/325 mg [[place] 1 tab PO Q4HP PRN #120 tab 04/01/19 Rx 5/325mg tablet] Prescriptions/Medication Reconciliation: New Hydrocod/Acet 5/325 mg [[place] 5/325mg tablet] 1 tab PO Q4HP PRN #120 tab PRN Reason: Moderate To Severe Pain Continued aspirin 81 mg chewable tablet 81 mg PO DAILY amiloride 5 mg-hydrochlorothiazide 50 mg tablet 1 tab PO DAILY Metoprolol Succinate [Toprol XL 50mg Tablet] 50 mg PO DAILY Ibandronate Sodium 150 mg PO WEEKLY Warfarin Sodium [Coumadin 3mg tablet] 3.5 mg PO DAILY
[2019-04-01 13:33] LABS: Hematocrit 29.8 % (37.0-47.0); Hemoglobin 10.2 g/dL (12.2-16.2)
--- NOTE | 2019-04-01 14:02 | Progress Note ---
Subjective Date: 04/01/19 Time: 13:00 Principal diagnosis: 1. Femoral neck fracture, left 2. Proximal humerus fracture, left Interval history: Patient is status post 1. Bipolar hemiarthroplasty LEFT hip; 2. ORIF left proximal humerus, post op day #2. Patient is sitting out of the chair. Patient says she has been feeling well and reports no particular problems. She reports minimal pain over her left hip and left shoulder. She is eating drinking well and reports no nausea or vomiting today. Today she is not reporting any distal tingling or numbness. PN: Obj Ex Vital signs: Temp Pulse Resp BP Pulse Ox 98.4 F 72 19 125/58 L 97 04/01/19 08:00 04/01/19 09:17 04/01/19 08:00 04/01/19 09:17 04/01/19 08:00 Narrative: Laboratory Results - last 24 hr 04/01/19 06:58: WBC 9.9, RBC 3.08 L, Hgb 9.6 L, Hct 27.5 L, MCV 89.1, MCH 31.0, MCHC 34.8, RDW 14.4, Plt Count 126 L, MPV 7.2 L, Neut % (Auto) 79.4, Lymph % (Auto) 14.6, [place] % (Auto) 5.4, Eos % (Auto) 0.6, Baso % (Auto) 0.1, Neut # (Auto) 7.8, Lymph # (Auto) 1.4, [place] # (Auto) 0.5, Eos # (Auto) 0.1, Baso # (Auto) 0.0 04/01/19 06:58: Sodium 129 L, Potassium 3.0 L, Chloride 96 L, Carbon Dioxide 28, Anion Gap 8.0, BUN 14, Creatinine 0.60, Estimated Creat Clear 43, Estimated GFR 95, Est GFR ( Amer) 115 D, Glucose 109 H, Calcium 8.0 L 04/01/19 13:17: Hgb 10.2 L, Hct 29.8 L Exam General appearance: Alert, awake; no acute distress Cardiovascular: Normal peripheral pulses Respiratory: No respiratory distress noted, speaks in full sentences ABD: soft and non tender On examination of the lower extremities the limb lengths are equal. Thigh and calf are soft and nontender. On examination of the LEFT hip the dressings are clean, dry and intact. I have changed the dressings today. There is minimal soakage of the [place] dressing with blood. No erythema, induration or signs of infection noted. Distal pulses are 1+. Distal sensation is intact to light touch throughout. She has got good range of foot and ankle movements. On examination of her LEFT shoulder, the surgical dressings are clean dry and intact. No soakage of dressings is noted. I have changed the dressings and the incision looks clean and healthy. She is in an arm sling. There is extensive ecchymosis over the upper arm. Distal sensation is intact light touch throughout. She has good range of elbow, wrist and finger movements. Distal pulses 2+. - Urinary Catheter Management Allen Cath placed during this visit: yes Urethral indwelling: Yes Reason for continuing: Surgical procedure Insertion date: 03/28/19 Insertion time: 22:20 Progress Note: A&P (1) Hip fracture Status: Acute Current Visit: Yes (2) Anticoagulated on Coumadin Status: Acute Current Visit: Yes (3) Humeral surgical neck fracture Status: Acute Current Visit: Yes (4) Fall Status: Acute Current Visit: No (5) Atrial fibrillation with controlled ventricular rate Status: Acute Current Visit: Yes (6) Anemia of chronic disease Status: Acute Current Visit: Yes (7) Anemia due to blood loss, acute Status: Acute Current Visit: No (8) Urinary frequency Status: Acute Current Visit: Yes Assessment and Plan for All Diagnoses:: I have reviewed the clinical findings and progress with the patient. Patient is doing well and reports no postoperative problems. The dressings are changed by me and both the incisions look healthy. There is minimal soakage from the hip incision and none from the shoulder incision. Continue PT/mobilization weightbearing as tolerated on the LEFT lower extremity. She should continue to be strictly nonweightbearing on her left upper extremity. Continue abduction pillow when in bed for 6 weeks and continue standard precautions for the posterior approach hip replacement. Continue as needed pain medication. Patient is being discharged to a [facility] facility for [facility]hab today. Patient is on long-term warfarin and that should be sufficient for DVT prophylaxis. From an orthopaedic standpoint, she is stable for discharge to a [facility] facility once cleared by the physical therapist. There are surgical dressings to be changed at the intermediate as needed. Follow-up in my office in 2 weeks from surgery for suture removal and reevaluation. Continue medical management as per Dr. Baez's team.
== END 2019-04-01 15:38 | DRG 469 ==
LOC: ER 18:04 → 2ND 20:31
PROVIDERS: ADMIT Family Medicine; ATTEND Family Medicine
CPT/HCPCS: 36415; 70450; 71020; 71046; 72125; 73030; 73060; 73200; 73502; 73590; 76000; 80048; 80053; 81001; 82553; 85007; 85014; 85018; 85025; 85610; 86850; 87070; 87205; 93005; 96365; 96372; 96375; 97110; 97116; 97163; 97165; 97530; 97535; 99284; C1713; C1776; J0697; J2405; P9016